=== PATIENT | male | born 1940 | race Caucasian/White ===

== ENCOUNTER 2017-10-09 02:14 | Emergency (ER) | payer OTHER ==
[~2017-10-09] VITALS: Ht 167.6 cm; Wt 88.0 kg
--- NOTE | ~2017-10-09 | EKG ---
[place] [address] ELECTROCARDIOGRAM REPORT Name: JOSEPHINE ARIAS Room: [facility]#: [id number] Admission: 10/09/17 Attend Phys: Discharge: Date of : 42 Report #: [id number] THIS REPORT FOR: //name// [facility] ED Test Date: 2017-10-09 Test Time: 02:18:42 Pat Name: JOSEPHINE ARIAS Department: Room: Gender: M Merchandise Director: SANTIAGO : 1940 Requested By: Zuly Jara Order Number: [id number] MD: Measurements Intervals [place] Rate: 82 P: 0 SC: 61 QRS: -79 QRSD: 134 T: 97 QT: 401 QTc: 469 Interpretive Statements Ventricular-paced complexes No further analysis attempted due to paced rhythm Baseline wander in lead(s) V2 Compared to ECG 07/25/2017 17:30:22 No significant changes [email or web address] By: 0218 0218 Epiphany EpiphanyMD /EPI
[~2017-10-09 02:14] MED LIST: ADULT LOW DOSE81 MG PO; ALDACTAZIDE 251 EAC1 PO; ALDACTONE25 MG PO; ALLOPURINOL; ALLOPURINOL 30300 M1 OR; ALLOPURINOL 30300 M1 PO; ALPRAZOLAM1 M1 PO; ASA81BEC PO; ASPIRIN EC81 M1 PO; ASPIRIN325; AZITHROMYCIN 2250 MG PO; CARVEDILOL12.5 MG OR; CARVEDILOL12.5 MG PO; CARVEDILOL25 MG PO; CARVEDILOL6.25 MG PO; CELEXA 20 MG TA20 MG PO; CLEOCIN HCL300 MG PO; CLOPIDOGREL; COLCHICINE PO; COREG6.25 MG PO; COUMADIN 2.5MG2.5 M1 PO; COUMADIN 5 MG TA5 M1; COUMADIN 5 MG TA5 M1 OR; COUMADIN 5 MG TA5 M1 PO; DESYREL50 MG PO; DILTIAZEM 24HR180 MG PO; DILTIAZEM ER120 M1 PO; EFFEXOR XR37.5 MG PO; ENTRESTO 24 MG1 EACH PO; EPLERENONE25 MG PO; FELDENE20 MG OR; FLAGYL500 MG PO; FLOMAX0.4 MG PO; HYDRALAZINE 2525 MG GT; HYDROCODON-ACE1 EAC8 PO; HYDROCODONE-AP1 EA11 PO; HYDROCODONE-AP1 EA12 PO; HYDROCODONE-APA1 TA1 PO; HYDROXYCHLOROQ200 M1 PO; IMDUR120 MG PO; JANTOVEN5 MG PO; KEFLEX500 MG PO; KLOR-CON 1010 MEQ PO; LANOXIN 0.250.25 M1 PO; LASIX 40 MG TAB40 M1 PO; LASIX 40 MG TAB40 M2 PO; LASIX 40 MG TAB40 MG GT; LASIX 80 MG TAB80 MG PO; LEVAQUIN 500 M500 M2 PO; LISINOPRIL20 MG PO; LISINOPRIL5 MG PO; LIVALO2 MG PO; LOSARTAN POTAS100 MG PO; MAGNESIUM OXID500 MG PO; MAGNESIUM250 M1 PO; METHOCARBAM PO; METOCLOPRAMIDE10 MG PO; MOBIC15 MG; MOBIC15 MG PO; MUCINEX600 MG PO; NITROGLYCERIN0.4 MG SL; NORCO 7.5-3251 EACH PO; NYSTATIN 1100000 U/M PO; OMEPRAZOLE 20 M20 M1 PO; OMEPRAZOLE40 MG PO; PACERONE 200 M200 M1 NG; PACERONE 200 M200 M1 PO; PERCOCET PO; PLAVIX 75 MG TA75 MG OR; PLAVIX 75 MG TA75 MG PO; POTASSIUM CHLO20 ME1 PO; PREDNISONE 10 M10 MG PO; PREDNISONE 5 MG5 M1 PO; PROBIOTIC ACID1 EACH PO; PROBIOTIC1 EAC1 PO; PROPRANOLOL 1010 M1 PO; PROPRANOLOL 1010 MG PO; RANEXA1000 MG PO; REGLAN 10 MG TA10 M1 PO; REGLAN 10 MG TA10 MG PO; ROCEPHIN 11 GM/100 M IV; TESSALON200 MG PO; TOPROL XL25 MG PO; TRAMADOL PO; TRAZODONE HCL100 MG PO; ULTRAM 50MG TAB50 MG PO; VANCOCIN 125 M125 M1 PO; VANCOMYCIN PO; VENLAFAXIN37.5 MG/1 PO; VENLAFAXINE H37.5 M2 PO; XANAX 0.5 MG0.5 M1 PO; XANAX1 MG PO; ZEGERID OTC 201 EACH PO; ZESTRIL20 MG PO; ZESTRIL30 MG PO; ZOFRAN4 MG PO; [UNRECOGNIZED DRUG - OTHER]
[2017-10-09 02:29] LABS: ABSOLUTE EOSINOPHILS 0.1 thou/uL (0.0-0.7); ABSOLUTE LYMPHOCYTES 1.7 thou/uL (0.8-5.3); ABSOLUTE NEUTROPHILS 4.5 thou/uL (1.6-8.1); BASOPHILS 0.6 %; EOSINOPHILS 1.1 %; HEMATOCRIT 36.9 % (42.0-52.0); HEMOGLOBIN 12.1 gm/dL (14.0-18.0); MCH 28.7 pg (26.0-34.0); MCHC 32.7 g/dL (28.0-37.0); MCV 87.6 fL (80.0-100.0); MONOCYTES 13.8 %; MPV 8.1 fl. (7.2-11.1); NUCLEATED RBCS 0 /100WBC; PLATELET COUNT* 183 thou/uL (150-400); POLYS 61.5 %; RBC 4.21 mil/uL (4.50-6.00); RDW-CV 23.6 % (10.5-14.5); WBC 7.4 thou/uL (4.0-11.0)
[2017-10-09 02:41] LABS: INR 2.3; PROTIME 22.3 Seconds (9.20-11.50)
[2017-10-09 02:49] LABS: CREATININE 2.4 mg/dL (0.6-1.3)
[2017-10-09 02:50] LABS: ALBUMIN 3.9 g/dL (3.4-5.0); CALCIUM 8.8 mg/dL (8.5-10.1); TOTAL BILIRUBIN 0.8 mg/dL (<0.1-1.0); TOTAL PROTEIN 7.2 g/dL (6.4-8.2); TROPONIN-I LEVEL 0.15 ng/mL (<0.06)
[2017-10-09 05:36] VITALS: BP 111/62
[2017-10-09 06:10] LABS: ANISOCYTOSIS 1+; OVALOCYTES Occasional; POIKILOCYTOSIS 1+; SCHISTOCYTES Occasional
[2017-10-09 06:11] LABS: PLATELET ESTIMATE ADEQUATE
== END 2017-10-09 05:36 | disposition home or self-care (01) ==
LOC: M.ERS 02:14
PROVIDERS: Emergency Medicine
DX: R07.89 Other chest pain (principal); I11.0 Hypertensive heart disease with heart failure; I50.9 Heart failure, unspecified; Z95.0 Presence of cardiac pacemaker; Z88.2 Allergy status to sulfonamides; Z88.8 Allergy status to other drugs, medicaments and biological substances; W00.2XXA Other fall from one level to another due to ice and snow, initial encounter; Y93.89 Activity, other specified; Y92.89 Other specified places as the place of occurrence of the external cause; Y99.8 Other external cause status

== ENCOUNTER 2017-10-11 15:21 | Inpatient (IN) | payer OTHER, SELFPAY ==
[~2017-10-11] VITALS: Ht 20.1 cm; Wt 90.8 kg
[2017-10-11 15:24] VITALS: BP 148/126
[2017-10-11 15:53] LABS: ABSOLUTE LYMPHOCYTES 0.8 thou/uL (0.8-5.3); ABSOLUTE MONOCYTES 0.8 thou/uL (0.0-1.2); ABSOLUTE NEUTROPHILS 4.8 thou/uL (1.6-8.1); BASOPHILS 0.2 %; CALCIUM 8.8 mg/dL (8.5-10.1); CREATININE 2.5 mg/dL (0.6-1.3); EOSINOPHILS 0.6 %; HEMATOCRIT 33.7 % (42.0-52.0); HEMOGLOBIN 11.2 gm/dL (14.0-18.0); LYMPHOCYTES 12.2 %; MCH 29.1 pg (26.0-34.0); MCHC 33.3 g/dL (28.0-37.0); MCV 87.5 fL (80.0-100.0); MONOCYTES 12.9 %; MPV 7.9 fl. (7.2-11.1); NUCLEATED RBCS 0 /100WBC; PLATELET COUNT* 164 thou/uL (150-400); POLYS 74.1 %; POTASSIUM 5.1 mmol/L (3.5-5.1); RBC 3.85 mil/uL (4.50-6.00); RDW-CV 23.1 % (10.5-14.5); WBC 6.4 thou/uL (4.0-11.0)
[2017-10-11 15:54] LABS: APTT 44.6 Seconds (25.0-31.3); INR 1.9; PROTIME 18.7 Seconds (9.20-11.50)
[2017-10-11 16:04] LABS: ALBUMIN 3.5 g/dL (3.4-5.0); TOTAL BILIRUBIN 1.1 mg/dL (<0.1-1.0); TOTAL PROTEIN 6.8 g/dL (6.4-8.2); TROPONIN-I LEVEL 0.14 ng/mL (<0.06)
[2017-10-11 16:12] LABS: URINE BILIRUBIN NEGATIVE (Negative); URINE BLOOD NEGATIVE (Negative); URINE CLARITY CLEAR; URINE COLOR YELLOW; URINE GLUCOSE-RANDOM NEGATIVE (Negative); URINE KETONES NEGATIVE (Negative); URINE LEUKOCYTES-REFLEX NEGATIVE (Negative); URINE NITRITE-REFLEX NEGATIVE (Negative); URINE PROTEIN NEGATIVE (Negative); URINE SPECIFIC GRAVITY <= 1.005 (1.005-1.030); URINE UROBILINOGEN 0.2 E.U./dl (0.2-1.0)
[2017-10-11 16:30] LABS: ANISOCYTOSIS 2+; OVALOCYTES 1+; PLATELET ESTIMATE ADEQUATE
[2017-10-11 16:32] LABS: SCHISTOCYTES Occasional
[2017-10-11 18:50] LABS: BE -0.5 mmol/L (-2 to +3); HCO3 23.5 mmol/L (22.0-26.0); PCO2 36.2 mmHg (35.0-45.0); PO2 90.7 mmHg (75.0-100.0)
[2017-10-11 19:51] VITALS: BP 118/68
[2017-10-11 21:00] VITALS: BP 117/53
[2017-10-12] VITALS (10 sets, daily range): BP systolic 83–119; BP diastolic 44–74
[2017-10-12 04:41] LABS: HEMATOCRIT 31.8 % (42.0-52.0); HEMOGLOBIN 10.4 gm/dL (14.0-18.0); MCH 28.8 pg (26.0-34.0); MCHC 32.8 g/dL (28.0-37.0); MCV 87.9 fL (80.0-100.0); MPV 7.9 fl. (7.2-11.1); RBC 3.62 mil/uL (4.50-6.00); RDW-CV 22.5 % (10.5-14.5); WBC 6.7 thou/uL (4.0-11.0)
[2017-10-12 05:02] LABS: CALCIUM 8.6 mg/dL (8.5-10.1); MAGNESIUM 2.3 mg/dL (1.8-2.4)
[2017-10-12 05:15] LABS: POTASSIUM 4.1 mmol/L (3.5-5.1)
--- NOTE | 2017-10-12 17:01 | EKG ---
[place] [address] ELECTROCARDIOGRAM REPORT Name: JOSEPHINE ARIAS Room: [address] IN .R.#: [id number] Admission: 10/11/17 Attend Phys: Kadeem Fuentes MD Discharge: Date of : 42 Report #: [id number] THIS REPORT FOR: //name// [facility] ED Test Date: 2017-10-11 Test Time: 15:29:06 Pat Name: JOSEPHINE ARIAS Department: Room: [facility] Gender: Molding Machine Operator: Alejandra TRINIDAD : 1940 Requested By: Farhan Montemayor Order Number: [id number] MD: Tony Christensen Measurements Intervals [place] Rate: 77 P: 0 [place]: 132 QRS: 260 QRSD: 139 T: 61 QT: 420 QTc: 476 Interpretive Statements Ventricular-paced rhythm No further analysis attempted due to paced rhythm Compared to ECG 10/09/2017 02:18:42 No significant changes Electronically Signed On 10-12-2017 17:01:27 TRAVEL ATTENDANTS by Tony Christensen [email or web address] <ELECTRONICALLY SIGNED> By: Tony Christensen MD, [facility] 10/12/17 1701 1529 1529 Tony Christensen MD, [facility] /EPI
[2017-10-13] VITALS (8 sets, daily range): BP systolic 90–137; BP diastolic 47–81
[2017-10-13 04:47] LABS: INR 2.1; PROTIME 20.6 Seconds (9.20-11.50)
[2017-10-13 05:07] LABS: CALCIUM 8.6 mg/dL (8.5-10.1); CREATININE 1.7 mg/dL (0.6-1.3); MAGNESIUM 2.1 mg/dL (1.8-2.4); POTASSIUM 4.2 mmol/L (3.5-5.1)
--- NOTE | 2017-10-13 07:23 | CON ---
[address] [address] CONSULTATION Name: JOSEPHINE ARIAS Room: [address] IN .R.#: [id number] Admission: 10/11/17 Attend Phys: Kadeem Fuentes MD Discharge: Date of : 42 Report #: [id number] THIS REPORT FOR: //name// CC: Omar Fuentes DATE OF SERVICE: 10/12/2017 HISTORY OF PRESENT ILLNESS: This is a 77-year-old male patient who was evaluated by me for some confusion. He is not sure whether he was confused. He thinks he is better. He thinks he fell down because of mechanical difficulty. He believes he is better. He did not have any head trauma and these symptoms came spontaneously. REVIEW OF SYSTEMS: The record indicates that he had some atrial fibrillation. It looks like he also had valve replacement. He says he does not have any metal in the body, but record indicates that he has a pacemaker and defibrillator, so we will confirm the history from the family because he still looks confused. Record also indicates that he has some history of dementia. Review of systems is from the patient, but is not very accurate. I do not think his memory is still very good, but the record indicates that he has a fracture of transverse process and other fractures in the past. He had a fall. He had an elevated troponin and looks like he has a defibrillator and aortic valve replacement. This is all the history I can get from the record. I did try to get rest of the 14-point of system and he basically does not tell me anything different. He said he was driving. He does not believe there is any new eye, ENT, respiratory, GI, , musculoskeletal, constitutional, dermatological, hematological, psychiatric, throat, allergic or endocrine symptoms associated with present symptomatology. PAST MEDICAL HISTORY: What appeared to be some cognitive impairment in the baseline. FAMILY HISTORY: Negative for early age stroke. SOCIAL HISTORY: He indicates he does not drink any alcohol or smoke now. PHYSICAL EXAMINATION: Indicates that this patient is alert, responsive. He was able to tell me what month and what date it is, but it took him a long time, but his memory and fund of knowledge is diminished. His speech looks intact. His cranial nerve examination 2-12 looks mostly unremarkable. Strength, sensation, reflexes and tone is symmetrical. There is no cerebellar sign. There is no meningeal sign. There is no carotid bruit. He is a reasonably well-developed individual who does not have any dysmorphic features of eyes, ears and face. His vision and hearing looks adequate. He has a history of atrial fibrillation. His pulse is difficult to feel, but I think it is there. No edema[place] [address] CONSULTATION Name: JOSEPHINE ARIAS Room: [address] IN [facility]#: [id number] Admission: 10/11/17 Attend Phys: Kadeem Fuentes MD Discharge: Date of : 41 Report #: [id number] jaundice. No thyroid mass. He had no respiratory difficulty or rhonchi. Blood pressure is 106/56, respirations 16, pulse is 59, temperature is 97.6. A CT scan of the head was mostly unremarkable. IMPRESSION: This patient presents with episode of confusion. I think it was related to his medication. He has taken psychotropic medication, but he had stopped it suddenly. He is becoming better. I think the best is to observe him to see if he continued to become better. It will be desirable to start this patient on PT, OT and see how he does with it. RECOMMENDATIONS: 1. EEG. 2. TSH and vitamin B12. 3. PT, OT. 4. See how he does with the PT, OT and then reevaluate the situation. <ELECTRONICALLY SIGNED> By: Kodi Hoskins MD 10/13/17 0723 1309 39Kodi Hoskins MD /nt
[2017-10-13] MEDS ORDERED: COUMADIN 5 MG TA5 M1 PO (15:51)
[2017-10-13] MEDS ORDERED: FLORASTOR250 MG PO (15:53)
[2017-10-14] VITALS: BP 100/62
[2017-10-14 04:03] VITALS: BP 140/80
[2017-10-14 05:08] LABS: ABSOLUTE LYMPHOCYTES 1.2 thou/uL (0.8-5.3); ABSOLUTE MONOCYTES 0.8 thou/uL (0.0-1.2); HEMOGLOBIN 10.8 gm/dL (14.0-18.0); MPV 8.4 fl. (7.2-11.1); PLATELET COUNT* 180 thou/uL (150-400); RDW-CV 22.3 % (10.5-14.5)
[2017-10-14 05:23] LABS: INR 2.2; PROTIME 21.4 Seconds (9.20-11.50)
[2017-10-14 05:30] LABS: ABSOLUTE EOSINOPHILS 0.1 thou/uL (0.0-0.7); ABSOLUTE NEUTROPHILS 4.8 thou/uL (1.6-8.1); BASOPHILS 0.3 %; EOSINOPHILS 0.8 %; HEMATOCRIT 31.8 % (42.0-52.0); LYMPHOCYTES 17.3 %; MCH 29.6 pg (26.0-34.0); MCHC 33.9 g/dL (28.0-37.0); MCV 87.3 fL (80.0-100.0); NUCLEATED RBCS 0 /100WBC; POLYS 69.6 %; RBC 3.65 mil/uL (4.50-6.00); WBC 6.9 thou/uL (4.0-11.0)
[2017-10-14 05:44] LABS: CALCIUM 8.7 mg/dL (8.5-10.1); CREATININE 1.6 mg/dL (0.6-1.3); POTASSIUM 4.4 mmol/L (3.5-5.1)
[2017-10-14 06:39] LABS: PLATELET ESTIMATE ADEQUATE
[2017-10-14 06:40] LABS: ANISOCYTOSIS 1+; HYPOCHROMASIA 1+; OVALOCYTES Occasional; POIKILOCYTOSIS 1+
[2017-10-14 08:00] VITALS: BP 137/88
[2017-10-14 12:00] VITALS: BP 130/64
[2017-10-14 16:00] VITALS: BP 120/62
[2017-10-14 20:00] VITALS: BP 142/78
[2017-10-15] VITALS: BP 125/78
[2017-10-15 11:37] VITALS: BP 105/56
[2017-10-15 12:31] LABS: ABSOLUTE EOSINOPHILS 0.1 thou/uL (0.0-0.7); ABSOLUTE LYMPHOCYTES 0.8 thou/uL (0.8-5.3); ABSOLUTE MONOCYTES 0.9 thou/uL (0.0-1.2); ABSOLUTE NEUTROPHILS 5.9 thou/uL (1.6-8.1); BASOPHILS 0.2 %; EOSINOPHILS 0.7 %; HEMATOCRIT 33.6 % (42.0-52.0); HEMOGLOBIN 11.2 gm/dL (14.0-18.0); LYMPHOCYTES 10.3 %; MCH 29.4 pg (26.0-34.0); MCHC 33.4 g/dL (28.0-37.0); MONOCYTES 11.6 %; MPV 7.7 fl. (7.2-11.1); NUCLEATED RBCS 0 /100WBC; PLATELET COUNT* 193 thou/uL (150-400); POLYS 77.2 %; RBC 3.82 mil/uL (4.50-6.00); RDW-CV 21.6 % (10.5-14.5); WBC 7.6 thou/uL (4.0-11.0)
[2017-10-15 12:36] LABS: CALCIUM 8.8 mg/dL (8.5-10.1); CREATININE 1.5 mg/dL (0.6-1.3); POTASSIUM 3.3 mmol/L (3.5-5.1)
[2017-10-15 12:38] LABS: INR 2.8; PROTIME 26.8 Seconds (9.20-11.50)
[2017-10-15 12:49] LABS: BURR CELLS Occasional; HYPOCHROMASIA 2+; PLATELET ESTIMATE ADEQUATE
[2017-10-15 15:30] VITALS: BP 91/49
[2017-10-15 20:00] VITALS: BP 118/68
[2017-10-16 00:02] VITALS: BP 129/73
[2017-10-16 04:00] VITALS: BP 128/74
[2017-10-16 05:32] LABS: INR 3.6
[2017-10-16 08:12] VITALS: BP 131/78
[2017-10-16 08:51] VITALS: BP 131/78
[2017-10-16 10:12] LABS: CALCIUM 8.7 mg/dL (8.5-10.1); CREATININE 1.5 mg/dL (0.6-1.3); POTASSIUM 3.8 mmol/L (3.5-5.1)
[2017-10-16] MEDS ORDERED: THIAMINE HCL100 MG PO (13:46)
--- NOTE | 2017-10-24 15:56 | EEG ---
[address] [address] EEG STUDY REPORT Name: ARIASJOSEPHINE L Room: [address]#: [id number] Admission: 10/11/17 Attend Phys: Kadeem Fuentes MD Discharge: 10/16/17 Date of : 41 Report #: [id number] THIS REPORT FOR: //name// CC: Omar Fuentes DATE OF SERVICE: 10/14/2017 This patient is being evaluated for altered mental status. EEG was done by placing the electrodes by standard 10/20 system of electrode placement. Both referential and sequential montages were used for recording. Background activity in this patient's EEG is about 8 Hz and 30-40 microvolt. It is a symmetrical activity. The patient went to sleep that is associated with bilateral slowing and vertex sharp waves. Photic stimulation is unremarkable. Throughout the record, no active epileptiform activity was noted. IMPRESSION: This patient's EEG is intermixed with theta range slowing on both sides. That is a nonspecific abnormality, which can occur with encephalopathy, dementia, effect of psychotropic medication, etc. Clinical correlation is recommended. Thank you very much for this referral. <ELECTRONICALLY SIGNED> By: Kodi Hoskins MD 10/24/17 1556 1412 1417Kodi Hoskins MD /nt
== END 2017-10-16 15:41 | disposition home health service (06) | DRG 91 ==
LOC: M.ERS 15:21 → M.TBA-ER 17:35 → M.2W 17:35
PROVIDERS: Family Medicine; Internal Medicine; ADMIT Internal Medicine
PROC: 4A00X4Z Measurement of Central Nervous Electrical Activity, External Approach (ICD-10-PCS; principal; 2017-10-15)
DX: G92 Toxic encephalopathy (principal); N17.0 Acute kidney failure with tubular necrosis; I50.20 Unspecified systolic (congestive) heart failure; I13.0 Hypertensive heart and chronic kidney disease with heart failure and stage 1 through stage 4 chronic kidney disease, or unspecified chronic kidney disease; I48.91 Unspecified atrial fibrillation; Z66 Do not resuscitate; N18.3 Chronic kidney disease, stage 3 (moderate); F41.9 Anxiety disorder, unspecified; I25.10 Atherosclerotic heart disease of native coronary artery without angina pectoris; S20.211A Contusion of right front wall of thorax, initial encounter; X58.XXXA Exposure to other specified factors, initial encounter; I27.20 Pulmonary hypertension, unspecified; F32.9 Major depressive disorder, single episode, unspecified; T43.215A Adverse effect of selective serotonin and norepinephrine reuptake inhibitors, initial encounter; Z96.652 Presence of left artificial knee joint; Z95.1 Presence of aortocoronary bypass graft; Z95.5 Presence of coronary angioplasty implant and graft; Z87.891 Personal history of nicotine dependence; Y93.89 Activity, other specified; Y92.89 Other specified places as the place of occurrence of the external cause; Y99.8 Other external cause status; Z95.810 Presence of automatic (implantable) cardiac defibrillator; Z79.01 Long term (current) use of anticoagulants; Z79.82 Long term (current) use of aspirin; Z79.899 Other long term (current) drug therapy; Z88.2 Allergy status to sulfonamides; Z88.8 Allergy status to other drugs, medicaments and biological substances; Z88.1 Allergy status to other antibiotic agents; Z82.49 Family history of ischemic heart disease and other diseases of the circulatory system

== ENCOUNTER → 2018-01-13 | Outpatient (CLI) | payer OTHER, SELFPAY ==
[~2018-01-13] MED LIST changes: +FLORASTOR250 MG PO; +THIAMINE HCL100 MG PO
[2018-01-13 13:36] LABS: CALCIUM 8.9 mg/dL (8.5-10.1); CREATININE 1.6 mg/dL (0.6-1.3); POTASSIUM 3.3 mmol/L (3.5-5.1)
== END ==
LOC: M.LAB 13:04
PROVIDERS: Nurse Practitioner
DX: I51.9 Heart disease, unspecified (principal)

== ENCOUNTER 2018-08-24 16:14 | Inpatient (IN) | payer OTHER ==
[~2018-08-24] VITALS: Ht 167.6 cm; Wt 88.5 kg
[~2018-08-24 16:14] MED LIST changes: -THIAMINE HCL100 MG PO; +VITAMIN B-1100 M1 PO
[2018-08-24 16:32] VITALS: BP 100/62
[2018-08-24] MEDS ORDERED: PROTONIX40 M1 PO (16:41)
[2018-08-24] MEDS ORDERED: DIGOXIN250 MCG PO (16:42)
[2018-08-24] MEDS ORDERED: KLONOPIN1 MG PO (16:44)
--- NOTE | 2018-08-24 16:50 | NUR ---
PATIENT PRESENTS WITH COMPLAINS OF HYPOTENSION REPORTED AT HOME AND ALSO VERTIGO TYPE SYMPTOMS PATIENT IS ALERT AND AMBULATORY DENIES N/V DENIES CHEST PAIN DENIES DYPSNEA PATIENT IS ALERT AND AGE APPROPRIATE SKIN WDP NO SIGNS OF DISTRESS
[2018-08-24 18:13] LABS: URINE BILIRUBIN NEGATIVE (Negative); URINE BLOOD NEGATIVE (Negative); URINE CLARITY CLEAR; URINE COLOR YELLOW; URINE GLUCOSE-RANDOM NEGATIVE (Negative); URINE KETONES NEGATIVE (Negative); URINE LEUKOCYTES-REFLEX NEGATIVE (Negative); URINE NITRITE-REFLEX NEGATIVE (Negative); URINE PROTEIN NEGATIVE (Negative); URINE UROBILINOGEN 0.2 E.U./dl (0.2-1.0)
[2018-08-24 18:20] LABS: HEMATOCRIT 30.6 % (42.0-52.0); HEMOGLOBIN 10.4 gm/dL (14.0-18.0); MCH 32.4 pg (26.0-34.0); MCV 95.3 fL (80.0-100.0); MPV 7.5 fl. (7.2-11.1); NUCLEATED RBCS 0 /100WBC; PLATELET COUNT* 168 thou/uL (150-400); RBC 3.22 mil/uL (4.50-6.00); RDW-CV 16.6 % (10.5-14.5); WBC 6.9 thou/uL (4.0-11.0)
[2018-08-24 18:29] LABS: CALCIUM 8.7 mg/dL (8.5-10.1); CREATININE 2.7 mg/dL (0.6-1.3); POTASSIUM 3.6 mmol/L (3.5-5.1)
[2018-08-24 18:36] LABS: ALBUMIN 3.3 g/dL (3.4-5.0); TOTAL BILIRUBIN 0.9 mg/dL (<0.1-1.0); TOTAL PROTEIN 6.5 g/dL (6.4-8.2); TROPONIN-I LEVEL 0.23 ng/mL (<0.06)
--- NOTE | 2018-08-24 18:50 | NUR ---
DR WHYTE TALKING WITH PATIENT REGARDING LAB FINDINGS
[2018-08-24 18:57] LABS: ABSOLUTE BASOPHILS 0.1 thou/uL (0.0-0.2); ABSOLUTE LYMPHOCYTES 0.7 thou/uL (0.8-5.3); ABSOLUTE MONOCYTES 0.3 thou/uL (0.0-1.2); ABSOLUTE NEUTROPHILS 5.8 thou/uL (1.6-8.1); ANISOCYTOSIS 1+; OVALOCYTES 1+; PLATELET ESTIMATE ADEQUATE; POIKILOCYTOSIS 1+
[2018-08-24 19:20] LABS: APTT 43.4 Seconds (25.0-31.3); INR 2.4; PROTIME 24.1 Seconds (9.20-11.50)
[2018-08-24 21:35] VITALS: BP 105/50
--- NOTE | 2018-08-24 23:00 | NUR ---
RECEIVED REPORT FROM PAYROLL SERVICES ANALYST JU AT 2130. PT ARRIVED TO UNIT AT 2150 VIA CART. PT VOICED NO CONCERNS THIS SHIFT. NEGATIVE SEPSIS SCREEN THIS SHIFT. HOURLY ROUNDING COMPLETED. PT V PACED ON CERTIFICATION AND SELECTION SPECIALIST. CALL LIGHT WITHIN REACH.
[2018-08-25] VITALS (8 sets, daily range): BP systolic 117–151; BP diastolic 51–81
--- NOTE | 2018-08-25 06:41 | NUR ---
PT RESTED WELL THIS SHIFT. NO COMPLAINTS. NO PAIN, DENIES FEELING DIZZY THIS SHIFT. VSS. V PACED ON COUNTER INTELLIGENCE. HOURLY ROUNDING COMPLETED. FALL PRECAUTIONS IN PLACE. CALL LIGHT WITHIN REACH.
--- NOTE | 2018-08-25 11:09 | NUR ---
MET WITH PT TO DISCUSS HOME SITUATION/DC PLANNING. PT LIVES WITH . HE IS INDEPENDENT WITH ADLS. SUES WALKER PRN AND BIPAP THRU [facility]. HE HAS HAD HH WITH [facility] IN THE PAST. PT REPORTS HE'S FEELING IMPROVED TODAY. DENIES ANY DC NEEDS. PLANS TO RETURN HOME AT DC AND DENIES NEEDS
[2018-08-25 11:21] LABS: CALCIUM 9.3 mg/dL (8.5-10.1); CREATININE 2.5 mg/dL (0.6-1.3); POTASSIUM 3.7 mmol/L (3.5-5.1)
--- NOTE | 2018-08-25 12:24 | NUR ---
Nutrition: Consult received for "wt change." Pt stated he usually weighs ~200#. Kekanto confirms this. Current wt is 195#. No significant changes. Pt stated he is eating fine. There was a time, PRESCRIPTIONIST, his appetite was poor d/t pain from falling on ice twice. He denies any nutrition/appetite issues currently. H/o CAD, CABG. BG 100, alb 3.3. Rx noted. 2gm Na, NPO after MN. Low risk.
[2018-08-25 15:38] LABS: INR 2.2; PROTIME 22.5 Seconds (9.20-11.50)
--- NOTE | 2018-08-25 17:03 | 2DMMODE ---
[place] [address] 2 D/M-MODE ECHOCARDIOGRAM Name: JOSEPHINE ARIAS Room: [address] IN [facility]#: [id number] Admission: 08/25/18 Attend Phys: Allen Bonner Discharge: Date of : 42 Date of Service: 08/25/18 170 Report #: [id number] THIS REPORT FOR: //name// APPROVED REPORT Study performed: 08/25/2018 10:24:41 EXAM: Comprehensive 2D, Doppler, and color-flow Echocardiogram Patient Location: In-Patient Room #: 229 Status: routine BSA: 1.98 HR: 77 bpm BP: 136/81 mmHg Rhythm: NSR Other Information Study Quality: Good Indications Hypotension Cardiomyopathy 2D Dimensions IVSd: 11.35 (7-11mm) LVOT Diam: 21.36 (18-24mm) LVDd: 59.55 mm PWd: 10.35 (7-11mm) Ascending Ao: 39.99 (22-36mm) LVDs: 53.77 (25-40mm) Aortic Root: 31.43 mm Volumes Left Atrial Volume (Systole) LA ESV Index: 61.40 mL/m2 Aortic Valve AoV Peak Bryan.: 2.07 m/s AO Peak Gr.: 17.11 mmHg LVOT Max P.99 mmHg AO Mean Gr.: 8.77 mmHg LVOT Mean P.25 mmHg LVOT Max V: 0.86 m/s AO V2 VTI: 38.07 cm LVOT Mean V: 0.50 m/s ANCA (VTI): 1.52 cm2 LVOT V1 VTI: 16.19 cm Mitral Valve E/A Ratio: 2.30 MV Decel. Time: 203.05 [place] [address] 2 D/M-MODE ECHOCARDIOGRAM Name: JOSEPHINE ARIAS Room: [address] IN .#: [id number] Admission: 08/25/18 Attend Phys: Allen Bonner Discharge: Date of : 42 Date of Service: 08/25/18 1702 Report #: [id number] MV E Max Bryan.: 1.72 m/s MV PHT: 58.88 ms MVA (PHT): 3.74 cm2 TDI E/Lateral E': 19.11 E/Medial E': 24.57 Medial E' Bryan.: 0.07 m/s Lateral E' Bryan.: 0.09 m/s Pulmonary Valve PV Peak Bryan.: 0.88 m/s PV Peak Gr.: 3.12 mmHg Tricuspid Valve RAP Estimate: 5.00 mmHg TR Peak Gr.: 41.54 mmHg RVSP: 46.00 mmHg PA Pressure: 46.00 mmHg Left Ventricle Left ventricle is moderately dilated. There is global hypokinesis of the left ventricle. There is normal left ventricular wall thickness. Left ventricular systolic function is severely decreased. LVEF is 25-30%. Grade IV - fixed restrictive diastolic dysfunction. Right Ventricle The right ventricle is normal size. The right ventricular systolic function is normal. Pacemaker lead is present in the right ventricle. Atria Left atrium is moderately dilated. The right atrium size is normal. Aortic Valve Mild aortic valve sclerosis. No aortic regurgitation is present. No hemodynamically significant valvular aortic stenosis. Mitral Valve Moderate mitral annular calcification. There is a bioprosthetic mitral valve. Moderate mitral regurgitation. No evidence of mitral valve stenosis. Tricuspid Valve The tricuspid valve is normal in structure. Mild to moderate tricuspid regurgitation. Moderate pulmonary hypertension. Pulmonic Valve The pulmonary valve is normal in structure[place] [address] 2 D/M-MODE ECHOCARDIOGRAM Name: JOSEPHINE ARIAS Room: [address]#: [id number] Admission: 08/25/18 Attend Phys: Allen Bonner Discharge: Date of : 42 Date of Service: 08/25/18 1702 Report #: [id number] regurgitation. Great Vessels The aortic root is normal in size. IVC is dilated and collapses <50% with inspiration. Pericardium There is no pericardial effusion. <Conclusion> Left ventricle is moderately dilated. There is normal left ventricular wall thickness. Left ventricular systolic function is severely decreased. LVEF is 25-30%. The right ventricle is normal size. Left atrium is moderately dilated. Mild aortic valve sclerosis. No aortic regurgitation is present. No hemodynamically significant valvular aortic stenosis. Moderate mitral annular calcification. Moderate mitral regurgitation. No evidence of mitral valve stenosis. The tricuspid valve is normal in structure. Mild to moderate tricuspid regurgitation. Moderate pulmonary hypertension. IVC is dilated and collapses <50% with inspiration. There is no pericardial effusion. There is global hypokinesis of the left ventricle. Pacemaker lead is present in the right ventricle. There is a bioprosthetic mitral valve. <ELECTRONICALLY SIGNED> By: Tony Christensen MD, FACC 08/25/181701 01 01 Tony Christensen MD, FACC /INF
--- NOTE | 2018-08-25 18:45 | EKG ---
[place] [address] ELECTROCARDIOGRAM REPORT Name: JOSEPHINE ARIAS Room: [address] ADM IN .R.#: [id number] Admission: 08/25/18 Attend Phys: Malgorzata Fong Discharge: Date of : 41 Report #: [id number] THIS REPORT FOR: //name// [facility] ED Test Date: 2018-08-24 Test Time: 17:01:04 Pat Name: JOSEPHINE ARIAS Department: Room: [facility] Gender: M Stitcher Hand: TDOWNS : 1940 Requested By: Monica Hardin Order Number: [id number] MD: Wenceslao Membreno Measurements Intervals [place] Rate: 59 P: 0 [place]: 49 QRS: 244 QRSD: 176 T: 93 QT: 526 QTc: 522 Interpretive Statements Atrial-ventricular dual-paced rhythm No further analysis attempted due to paced rhythm Compared to ECG 10/11/2017 15:29:06 No significant changes Electronically Signed On 08-25-2018 18:44:54 EMISSIONS REPAIR TECHNICIAN by Wenceslao Membreno [email or web address] <ELECTRONICALLY SIGNED> By: Wenceslao Membreno MD, FACC 08/25/18 1844 1701 1701 Wenceslao Membreno MD, [facility] /EPI
--- NOTE | 2018-08-25 18:52 | NUR ---
PATIENT RESTING IN ROOM. UP AD KATHERIN. VITAL SIGNS STABEL AND PATIENT APPEARS TO BE TOLERATING BLOOD PRESSURE MEDICATIONS. HOURLY ROUNDING COMPETED FOR PATIENTSAFETY.
[2018-08-26] VITALS: BP 117/56
[2018-08-26 04:00] VITALS: BP 147/60
--- NOTE | 2018-08-26 04:03 | NUR ---
ASSUMED PT CARE AT 1915. PT V PACED ON SALES ENABLEMENT SPECIALIST. NURSING ASSESSMENT COMPLETED AT START OF SHIFT. PT VOICED NO CONCERNS. IVF INFUSING, HOURLY ROUNDING COMPLETED, VSS, CALL LIGHT WITHIN REACH. PT PROGRESSING TOWARDS GOALS.
[2018-08-26 05:13] LABS: INR 2.2; PROTIME 22.3 Seconds (9.20-11.50)
[2018-08-26 05:24] LABS: CALCIUM 8.8 mg/dL (8.5-10.1); CREATININE 1.8 mg/dL (0.6-1.3); POTASSIUM 3.2 mmol/L (3.5-5.1)
[2018-08-26 08:00] VITALS: BP 137/77
--- NOTE | 2018-08-26 11:06 | NUR ---
CONTINUE TO FOLLOW, PT DCING HOME. DISCUSSED HH AGAIN, HE WOULD LIKE TO HAVE A HH NURSE NOW. DISCUSSED OPTIONS AND CHOSE [facility] HE HAS USED THEM BEFORE. CALLED AND FAXED REFERRAL TO [facility].
[2018-08-26 11:42] VITALS: BP 118/62
[2018-08-26] MEDS ORDERED: ENTRESTO 24 MG1 EACH PO (11:47)
[2018-08-26 11:53] VITALS: BP 118/62
[2018-08-26 11:55] VITALS: BP 136/81
--- NOTE | 2018-08-26 13:58 | NUR ---
PT DISCHARGE INSTRUCTIONS REVIEWED WITH PT AND DAUGHTER, EVELYNE. QUESTIONS ANSWERED. DISCHARGE INSTRUCTIONS SENT WITH PT, BLOWER AND COMPRESSOR ASSEMBLER AND PIV DISCONTINUED EARLIER.
--- NOTE | 2018-08-27 15:28 | CON ---
[address] [address] CONSULTATION Name: JUANAJOSEPHINE Jeannine Room: [address] IN .R.#: [id number] Admission: 08/25/18 Attend Phys: Malgorzata Fong Discharge: 08/26/18 Date of : 41 Report #: [id number] THIS REPORT FOR: //name// CC: Wenceslao Bonner CONSULTING PHYSICIAN: Allen Bonner DO. REASON FOR CONSULTATION: Acute kidney injury. HISTORY OF PRESENT ILLNESS: This is a 78-year-old gentleman who does not have an outpatient director life insurance and does not recall any history of chronic kidney disease, who was admitted with hypotension. He had blood pressures down into the upper 60s and blood pressure medications were withheld. His blood pressure has subsequently improved. He is feeling much better now. He is undergoing an echocardiogram. He denies any regular NSAID use. No nausea, vomiting or diarrhea and he appears to be comfortable at present time. REVIEW OF SYSTEMS: Constitutional, psych, heme, eyes, ENT, respiratory, cardiac, GI, , endocrine, all negative except as documented above. PAST MEDICAL HISTORY: Ischemic cardiomyopathy, coronary artery disease with history of 5-vessel CABG. There is mention of a history of hypertension, history of a pacemaker defibrillator, history of AFib, history of mitral valve repair, history of aortic valve replacement, peripheral vascular disease with history of carotid stenosis. He appears to have chronic kidney disease stage 3, history of C. diff with fecal transplant, depression. SOCIAL HISTORY: Previous tobacco use. FAMILY HISTORY: Not pertinent in this 78-year-old gentleman. MEDICATIONS: Reviewed. PHYSICAL EXAMINATION: VITAL SIGNS: Blood pressure 136/81, pulse 73, respirations 16, temperature 36.7. GENERAL: No acute distress. EYES: Extraocular movements intact. EARS: Externally normal. CARDIOVASCULAR: Regular rate. LUNGS: Diminished breath sounds. ABDOMEN: Soft, positive bowel sounds, nontender. PSYCHIATRIC: Awake, alert. LABORATORY DATA: White cell count 6.9, hemoglobin 10.4, platelets 168[place] [address] CONSULTATION Name: JOSEPHINE ARIAS Room: [address]#: [id number] Admission: 08/25/18 Attend Phys: Malgorzata Fong Discharge: 08/26/18 Date of : 41 Report #: [id number], potassium 3.6, chloride 92, bicarbonate 36, BUN 47, creatinine 2.7, calcium 8.7, glucose was 100 and albumin was 3.3. These labs were done yesterday evening. ASSESSMENT AND PLAN: 1. Acute kidney injury with an admission creatinine of 2.7. On 01/13/2018, creatinine was 1.6. He was on Lasix. He was significantly hypotensive on admission and this likely contributed to his acute kidney injury. His CK was okay, his UA was okay. 2. History of hypertension, admitted with hypotension. 3. Chronic kidney disease stage 3, baseline creatinine probably about 1.5-1.9. 4. Coronary artery disease with history of 5-vessel coronary artery bypass graft and ischemic cardiomyopathy along atrial fibrillation with a history of mitral valve repair and aortic valve replacement. 5. History of carotid stenosis. PLAN: 1. Check the lab now with improved blood pressure and reduced blood pressure medications. His renal function may have improved. He does have some mild hyponatremia. We will again repeat labs. 2. Check renal ultrasound. 3. Check lab again in the a.m. 4. The patient will need outpatient renal followup once ready for discharge. Thank you for requesting my opinion in the care and management of this patient. <ELECTRONICALLY SIGNED> By: Alexander Amin MD 08/27/18 1528 1046 1112Akasia Amin MD /nt
== END 2018-08-26 15:24 | disposition home health service (06) | DRG 682 ==
LOC: M.ERS 16:14 → M.TBA-ER 19:04 → M.2W 19:04
PROVIDERS: Internal Medicine Nephrology; Personal Emergency Response Attendant; ADMIT Internal Medicine
DX: N17.0 Acute kidney failure with tubular necrosis (principal); I50.43 Acute on chronic combined systolic (congestive) and diastolic (congestive) heart failure; I13.0 Hypertensive heart and chronic kidney disease with heart failure and stage 1 through stage 4 chronic kidney disease, or unspecified chronic kidney disease; I95.2 Hypotension due to drugs; N18.4 Chronic kidney disease, stage 4 (severe); E86.0 Dehydration; I25.10 Atherosclerotic heart disease of native coronary artery without angina pectoris; Z96.652 Presence of left artificial knee joint; F32.9 Major depressive disorder, single episode, unspecified; F41.9 Anxiety disorder, unspecified; I27.20 Pulmonary hypertension, unspecified; I25.5 Ischemic cardiomyopathy; I73.9 Peripheral vascular disease, unspecified; I48.2 Chronic atrial fibrillation; E87.6 Hypokalemia; T50.905A Adverse effect of unspecified drugs, medicaments and biological substances, initial encounter; Z95.1 Presence of aortocoronary bypass graft; Z95.0 Presence of cardiac pacemaker; Z79.01 Long term (current) use of anticoagulants; Z95.2 Presence of prosthetic heart valve; Z88.2 Allergy status to sulfonamides; Z88.8 Allergy status to other drugs, medicaments and biological substances; Z87.891 Personal history of nicotine dependence; Z82.49 Family history of ischemic heart disease and other diseases of the circulatory system

== ENCOUNTER 2018-09-27 06:30 | Inpatient (IN) | payer OTHER ==
[~2018-09-27] VITALS: Ht 167.6 cm; Wt 93.1 kg
--- NOTE | ~2018-09-27 | CON ---
[address] [address] CONSULTATION Name: JOSEPHINE ARIAS Room: [address] IN .R.#: [id number] Admission: 09/27/18 Attend Phys: Kadeem Fuentes MD Discharge: Date of : 42 Report #: [id number] THIS REPORT FOR: //name// CC: Kadeem Bruno DATE OF SERVICE: 09/28/2018 HISTORY OF PRESENT ILLNESS: This is a pleasant 78-year-old male with past medical history significant for CHF, pulmonary hypertension, atrial fibrillation, aortic valve disease, CKD, who is presenting for evaluation of abdominal pain, bloating. The GI service has been consulted for evaluation of elevated liver enzymes. The patient reports generalized bloating and vague abdominal pain. He denies any specific association with food or bowel movements. He reports associated nausea and no vomiting. The patient denies any significant weight loss in the recent time. The patient denies any fevers, chills, episodes of jaundice in the past. PAST MEDICAL HISTORY: Significant for coronary artery disease, mitral valve repair, aortic valve repair, atrial fibrillation, CHF, pulmonary hypertension. PAST SURGICAL HISTORY: Significant for appendectomy, right knee surgery, cataract extraction. SOCIAL HISTORY: The patient quit smoking several years back. He reports intermittent alcohol use about 2-3 beers per week. Denies any recreational drug use. FAMILY HISTORY: Significant for coronary artery disease. REVIEW OF SYSTEMS: Comprehensive 10-point review of systems is negative except what is mentioned in the HPI. PHYSICAL EXAMINATION: VITAL SIGNS: Temperature 36.7, pulse rate 69, respirations 17, blood pressure 107/58. GENERAL: The patient is alert and oriented x 3. HEENT: Pupils are equal, round, reactive to light and accommodation. Scleral icterus is present. Mucous membranes are moist. There is no congestion. LUNGS: Clear to auscultation bilaterally. CARDIOVASCULAR: Irregularly irregular. ABDOMEN: Soft, distended. No Polanco sign present. Bowel sounds are present. EXTREMITIES: Warm, well perfused, 2+ pitting edema present bilaterally. The patient does appear to have mild asterixis. SKIN: [place] [address] CONSULTATION Name: ARIASJOSEPHINE L Room: [address] IN [facility]#: [id number] Admission: 09/27/18 Attend Phys: Kadeem Fuentes MD Discharge: Date of : 42 Report #: [id number] LABORATORY DATA: Hemoglobin 9.9, hematocrit 29.4, platelet count 192, WBC count 7.3. Sodium 139, potassium 3.2, chloride 99, bicarbonate 32, BUN 28, creatinine 1.9, total bilirubin 2.9, AST 85, ALT 162. Troponin elevated at 0.16. INR 2.3. Abdomen and pelvis CT demonstrates cholelithiasis and constipation. No intrahepatic biliary ductal dilation seen. HIDA scan this demonstrates slow uptake of isotope in slow excretion, no evidence of biliary obstruction. This may reflect primary parenchymal abnormality, prompt filling of gallbladder with simultaneous bile duct opacification. ASSESSMENT AND PLAN: Pleasant 78-year-old male with past medical history as elaborated above, presenting with abdominal distention and elevated liver enzymes. The patient's bilirubin, AST, ALT and alkaline phosphatase are elevated. I suspect this is related to passive congestion from pulmonary hypertension and congestive heart failure. HIDA scan indicates a poor parenchymal uptake with no evidence of biliary ductal obstruction. CT indicates no dilation of the intrahepatic bile ducts. 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 A transjugular liver biopsy with wedge pressure measurement will be necessary for definitive diagnosis. However, I will hold off on this for now unless the patient becomes more symptomatic or his liver enzymes continue to worsen. Continue to diurese him for now and thank you for this consult. By: 1610 [id number] Nieves MD /nt
[~2018-09-27 06:30] MED LIST changes: +DIGOXIN250 MCG PO; +KLONOPIN1 MG PO; +PROTONIX40 M1 PO
[2018-09-27 06:39] VITALS: BP 126/69
[2018-09-27] MEDS ORDERED: PACERONE 200 M200 M1 (06:47)
[2018-09-27] MEDS ORDERED: LASIX 80 MG TAB80 MG (06:47)
[2018-09-27] MEDS ORDERED: tumeric PO (06:49)
[2018-09-27 07:01] LABS: HEMATOCRIT 33.9 % (42.0-52.0); MCH 31.1 pg (26.0-34.0); MCHC 32.5 g/dL (28.0-37.0); MCV 95.7 fL (80.0-100.0); MPV 8.3 fl. (7.2-11.1); NUCLEATED RBCS 0 /100WBC; PLATELET COUNT* 260 thou/uL (150-400); RBC 3.54 mil/uL (4.50-6.00); RDW-CV 16.6 % (10.5-14.5); WBC 11.3 thou/uL (4.0-11.0)
[2018-09-27 07:07] LABS: CALCIUM 9.6 mg/dL (8.5-10.1); CREATININE 2.1 mg/dL (0.6-1.3)
[2018-09-27 07:11] LABS: PROTIME 30.2 Seconds (9.20-11.50)
[2018-09-27 07:18] LABS: ALBUMIN 3.7 g/dL (3.4-5.0); TOTAL BILIRUBIN 3.8 mg/dL (<0.1-1.0); TOTAL PROTEIN 7.3 g/dL (6.4-8.2); TROPONIN-I LEVEL 0.17 ng/mL (<0.06)
[2018-09-27 07:33] LABS: ABSOLUTE LYMPHOCYTES 0.8 thou/uL (0.8-5.3); ABSOLUTE MONOCYTES 0.8 thou/uL (0.0-1.2); ABSOLUTE NEUTROPHILS 9.7 thou/uL (1.6-8.1); PLATELET ESTIMATE ADEQUATE
[2018-09-27 08:11] LABS: AMYLASE 62 U/L (25-115); LIPASE 90 U/L (73-393)
--- NOTE | 2018-09-27 08:27 | NUR ---
PT INSTRUCTED ON VOIDING FOR URINE SAMPLE, BUT WAS UNABLE TO DO SO.
--- NOTE | 2018-09-27 10:34 | EKG ---
[place] [address] ELECTROCARDIOGRAM REPORT Name: JOSEPHINE ARIAS Room: [place] [address] ADM IN [facility]#: [id number] Admission: 09/27/18 Attend Phys: Kadeem Fuentes MD Discharge: Date of : 42 Report #: [id number] THIS REPORT FOR: //name// [facility] ED Test Date: 2018-09-27 Test Time: 06:58:33 Pat Name: JOSEPHINE ARIAS Department: Room: [facility] Gender: M Room Maid: CHAD : 1940 Requested By: Monica Hardin Order Number: [id number] MD: Neftali Gamboa Measurements Intervals [place] Rate: 82 P: 92 [place]: 178 QRS: 221 QRSD: 161 T: 58 QT: 453 QTc: 529 Interpretive Statements Ventricular-paced rhythm No further analysis attempted due to paced rhythm Compared to ECG 08/24/2018 17:01:04 no change Electronically Signed On 09-27-2018 10:34:21 GAS WELDING EQUIPMENT MECHANIC by Neftali Gamboa [email or web address] <ELECTRONICALLY SIGNED> By: Neftali Gamboa MD, [facility] 09/27/18 1034 0658 0658 Neftali Gamboa MD, [facility] /EPI
[2018-09-27 11:33] VITALS: BP 105/58
[2018-09-27 12:15] VITALS: BP 128/64
[2018-09-27 12:41] LABS: DIRECT BILIRUBIN 2.2 mg/dL (<0.1-0.3)
--- NOTE | 2018-09-27 15:28 | NUR ---
PATIENT IS ALERT TODAY SINCE COMING UP FROM THE ER. PLEASANT AND ALERT SOMEWHAT DISORIENTED WITH THE YEAR AND TIME. FAMILY AT BEDSIDE WITH PATIENT DURING ADMSSION. ROOM ORIENTATION AND ADMISSION ASSESSMENT DONE. CALL LIGHT IS IN REACH, WILL CONTINUE TO MONITOR.
--- NOTE | 2018-09-27 18:04 | NUR ---
PATIENT IS ALERT TODAY, NO COMPLAINTS OF ANY KIND SINCE COMING TO THE FLOOR. PATIENT HAS ERCP DONE AND WAITING FOR GI TO SEE, CARDIOOLGY CHANGED SOME MEDICATION ORDERS TODAY, MEDICATION HAD ALREADY BEEN GIVEN, PROVIDER SAID HOLD STARTING COUMADIN TOMOROW. CALL LIGHT IS IN REACH, WILL CONTINUE TO MONITOR.
[2018-09-27 20:00] VITALS: BP 113/66
[2018-09-28] VITALS: BP 117/58
[2018-09-28 04:00] VITALS: BP 134/69
[2018-09-28 04:45] LABS: HEMATOCRIT 29.4 % (42.0-52.0); HEMOGLOBIN 9.9 gm/dL (14.0-18.0); MCH 32.2 pg (26.0-34.0); MCHC 33.7 g/dL (28.0-37.0); MCV 95.5 fL (80.0-100.0); MPV 8.3 fl. (7.2-11.1); RBC 3.08 mil/uL (4.50-6.00); RDW-CV 16.6 % (10.5-14.5); WBC 7.3 thou/uL (4.0-11.0)
[2018-09-28 04:57] LABS: INR 2.3; PROTIME 23.4 Seconds (9.20-11.50)
[2018-09-28 05:03] LABS: CALCIUM 9.1 mg/dL (8.5-10.1); CREATININE 1.9 mg/dL (0.6-1.3); MAGNESIUM 2.2 mg/dL (1.8-2.4); POTASSIUM 3.2 mmol/L (3.5-5.1); TOTAL BILIRUBIN 2.9 mg/dL (<0.1-1.0); TROPONIN-I LEVEL 0.16 ng/mL (<0.06)
--- NOTE | 2018-09-28 05:25 | NUR ---
ASSUMED CARE OF PT AFTER REPORT AT 1930. PT A&OX4. FORGETFUL. VSS. PHYSICAL ASSESSMENT COMPLETED AND CHARTED. PT ON RA WITH 94% O2 SAT. PT TRACING VPACED ON TELE. PT UP STANDBY WITH A WALKER TO THE RESTROOM. DENIES ANY PAIN OR SOA. REMINDED ON 2OOOMLS FLUID RESTRICTION. COOMUNICATES UNDERSTANDING. FALL PRECAUTIONS IN PLACE. CALL LIGHT WITHIN REACH.
[2018-09-28 09:15] VITALS: BP 100/48
--- NOTE | 2018-09-28 09:28 | CON ---
[address] [address] CONSULTATION Name: ARIASJOSEPHINE Jeannine Room: [address] IN M.R.#: [id number] Admission: 09/27/18 Attend Phys: Kadeem Fuentes MD Discharge: Date of : 42 Report #: [id number] THIS REPORT FOR: //name// CC: Kadeem Bruno MD DATE OF SERVICE: 09/27/2018 TYPE OF REPORT: Cardiology consultation. PRIMARY CARE PHYSICIAN: Erendira Bruno M.D. HISTORY OF PRESENT ILLNESS: The patient is a 78-year-old white male who I was asked to see in the hospital today after he complained of abdominal pain. The patient has an extensive and complicated past medical history. He apparently had previous 5-vessel coronary artery bypass surgery with aortic valve replacement, mitral valve repair and a maze procedure at [facility] by Dr. Monique years ago. He has a history of paroxysmal atrial fibrillation. This was apparently performed in 2010 using a bioprosthesis in the aortic position. He underwent implantation of a biventricular defibrillator by Dr. Lan at [facility] in 2017. Recently, he has been followed by my partner, Dr. Membreno. He actually just saw my nurse practitioner a week ago. He was admitted to [facility] in August with hypertension, lightheadedness. He was felt to be dehydrated. His dose of carvedilol was decreased as well as a dose of Entresto. His Lasix was held because of renal insufficiency. He saw his pool manager 2 weeks ago and he started back on Lasix. When he saw my nurse practitioner, he was doing well. The patient apparently came to the emergency room this morning complaining of edema, loose stool, fatigued. He does have some abdominal pain and bloating. He apparently was confused. He is admitted for further evaluation and treatment. He denies any chest pain, increased palpitations or recent discharges of defibrillator. He has been short of breath and has noticed some edema. PAST MEDICAL HISTORY: Otherwise significant for appendectomy, right knee surgery, cataract extraction and hypertension. MEDICATIONS: Consist of allopurinol, Xanax, amiodarone for intermittent atrial fibrillation, carvedilol, Lasix, hydrocodone as needed, omeprazole, potassium, Entresto, Flomax, Effexor and warfarin. ALLERGIES: He has intolerance to spironolactone. FAMILY HISTORY: [place] [address] CONSULTATION Name: JOSEPHINE ARIAS Room: [address]#: [id number] Admission: 09/27/18 Attend Phys: Kadeem Fuentes MD Discharge: Date of : 41 Report #: [id number] SOCIAL HISTORY: He is . He and his live in [place], [place]. Quit smoking years ago. No alcohol abuse. REVIEW OF SYSTEMS: He has had no history of stroke. He does apparently use BiPAP at home. No history of peptic ulcer disease or liver disease. He has chronic kidney disease. No cancer. No psychiatric illness. PHYSICAL EXAMINATION: GENERAL: Revealed an elderly male sitting in chair. He appeared in no acute distress. VITAL SIGNS: He had a blood pressure 120/70, pulse is 80s and afebrile. HEENT: He is anicteric. Conjunctivae pink. Mucous membranes appear dry. NECK: Veins do not appear distended. No carotid bruits. CHEST: Clear to auscultation. CARDIOVASCULAR: Regular rate and rhythm. ABDOMEN: Soft. EXTREMITIES: Had trace edema. SKIN: Cool and dry. NEUROLOGICAL: Very slow moving. RADIOLOGICAL DATA: His ECG showed a ventricular paced rhythm. His underlying rhythm suggested atrial fibrillation. His workup last night included a chest x-ray that showed cardiomegaly, clear lung waldrop. CT scan of the abdomen showed gallstones. LABORATORY DATA: His lab work: Sodium is 135, potassium 4.0, BUN 27, creatinine is 2.1 which is down from 2.5 on August 25. His total bilirubin is 4.0. SGOT 159, SGPT 223 and alkaline phosphate 506, which is elevated from last month. His troponin was 0.17. It was actually 0.23 a month ago. BNP 6372. His TSH last month was 0.3. His INR was 3. White blood cell count 11.3 and hemoglobin 11. IMPRESSION AND RECOMMENDATIONS: 1. Elevated liver function studies. 2. Gallstones. 3. Cardiomyopathy. The patient has been on Entresto and carvedilol. 4. Coronary artery disease. No recent angina. Since the patient is on warfarin, I would not recommend aspirin. 5. Previous aortic valve replacement using tissue valve. The patient's last echocardiogram a month ago showed an ejection fraction of only 25%, left atrial enlargement, no significant aortic valve insufficiency, moderate mitral regurgitation following mitral valve repair. 6. History of atrial fibrillation. His ECG today appears to show his underlying rhythm is atrial fibrillation. If he remains in atrial fibrillation, I would consider discontinuing his amiodarone. If the patient is anticoagulated, I would maintain an INR of 2-3. [address] [place] [address] CONSULTATION Name: JOSEPHINE ARIAS Room: [address] IN ..#: [id number] Admission: 09/27/18 Attend Phys: Kadeem Fuentes MD Discharge: Date of : 41 Report #: [id number] 7. Chronic kidney disease. 8. Use of bilevel positive airway pressure. <ELECTRONICALLY SIGNED> By: Neftali Gamboa MD, FACC 09/28/18 0928 1751 [id number] Gamboa MD, FACC /nt
[2018-09-28 12:00] VITALS: BP 107/58
[2018-09-28 16:00] VITALS: BP 134/89
[2018-09-28 16:11] LABS: HEPATITIS B SURFACE AG Negative (Negative)
--- NOTE | 2018-09-28 16:30 | NUR ---
REGIONAL TRAINER ATTEMPTED TO SPEAK TO THE PATIENT TO DISCUSS HIS HOME SITUAITON, DISCHARGE PLANNING, AND TO INFORM OF THE ROLE OF CM. PATIENT UNABLE TO APPROPRIATELY ANSWER QUESTIONS. D/C IRRIGATION INSTALLATION SPECIALIST SPOKE TO THE PATIENT'S SPOUSE AND SHE INFORMS THAT THE PATIENT RESIDES AT HOME WITH HER, IS NORMALLY ALERT AND ORIENTED, INDEPENDENT WITH ADL'S, AND ABLE TO DRIVE OCCATIONALLY. PATIENT USES A WALKER FOR MOBILITY, AND A BIPAP AT NIGHT. PATIENT CURRENTLY ON-SERVICE WITH [facility], AND THIS IS CONFIRMED WITH DAVID WITH [facility]. PATIENT'S SPOUSE INFORMS THAT THE PLAN FOR THE PATIENT TO RETURN HOME WITH HH AT D/C. CM WILL REMAIN AVAILABLE TO ASSIST AND FOLLOW NEEDED.
--- NOTE | 2018-09-28 18:42 | NUR ---
ASSUMED PT CARE AT 0730, FULL ASSESMENT DONE CHARTED. PT A/O X4, DENIES PAIN, IS CONFUSED AT TIMES, ANDREAFSKI, PT DOES NOT ALWAYS USE CALL LIGHT TO ASK FOR HELP UP TO THE BATHROOM, BED ALARM IS ON. BP SOFT, PT ASYMPTOMATIC, ALL OTHER VSS, VPACED ON THE MONITOR. PTS AND DTR AT BEDSIDE THIS AFTERNOON, UPDATED ON PLAN OF CARE. PT ASSISTED WITH TRAY SET UP WITH MEALS. ISOLATION MAITAINED. WILL CONTINUE TO MONITOR.
[2018-09-28 20:00] VITALS: BP 143/74
[2018-09-29] VITALS: BP 128/70
[2018-09-29 04:00] VITALS: BP 134/68
--- NOTE | 2018-09-29 04:44 | NUR ---
ASSUMED CARE OF PT AFTER REPORT AT 1930. PT A&OX4. FORGETFUL & CONFUSED AT TIMES. VSS. PHYSICAL ASSESSMENT COMPLETED AND CHARTED. PT ON RA WITH 97% O2 SAT. PT TRACING VPACED ON TELE. PT UP STANDBY TO RESTROOM. PT DENIES ANY PAIN OR DISCOMFORT. PT RESTED WELL ON BED. CALL LIGHT WITHIN REACH. BED IN LOW POSITION. BED ALARM ON.
[2018-09-29 05:09] LABS: HEMATOCRIT 29.4 % (42.0-52.0); HEMOGLOBIN 9.8 gm/dL (14.0-18.0); MCHC 33.5 g/dL (28.0-37.0); MCV 95.5 fL (80.0-100.0); MPV 8.6 fl. (7.2-11.1); RBC 3.08 mil/uL (4.50-6.00); RDW-CV 16.4 % (10.5-14.5); WBC 6.5 thou/uL (4.0-11.0)
[2018-09-29 05:24] LABS: PROTIME 20.6 Seconds (9.20-11.50)
[2018-09-29 05:30] LABS: ALBUMIN 2.9 g/dL (3.4-5.0); CREATININE 1.8 mg/dL (0.6-1.3); MAGNESIUM 2.1 mg/dL (1.8-2.4); POTASSIUM 3.2 mmol/L (3.5-5.1); TOTAL BILIRUBIN 2.1 mg/dL (<0.1-1.0); TROPONIN-I LEVEL 0.15 ng/mL (<0.06)
[2018-09-29 08:00] VITALS: BP 132/77
[2018-09-29 12:00] VITALS: BP 122/64
[2018-09-29 16:00] VITALS: BP 125/66
--- NOTE | 2018-09-29 18:58 | NUR ---
ASSUMED PT CARE AT 0730, FULL ASSESMENT DONE CHARTED. PT A/O X4, FORGETFUL AT TIMES, IS NOT CONFUSED PREVIOUS DAY. PT MOVED TO LARGER ROOM CLOSER TO NURSES STATION DUE TO HX FALLS AND NOT CALLING STAFF APPROPRIATLY. PT TO RECLINER TODAY, WALKED IN LACEY WITH PT. VSS, VPACED/AV PACED ON THE MONITOR. PT DOING BETTER TOWARD END OF SHIFT CALLING STAFF FOR NEEDS. GOOD APITITE, AT BEDSIDE THIS EVENING. WILL CONTINUE TO MONITOR
[2018-09-29 19:45] VITALS: BP 109/61
[2018-09-30] VITALS: BP 122/74
[2018-09-30 04:00] VITALS: BP 132/73
[2018-09-30 06:29] LABS: HEMATOCRIT 29.7 % (42.0-52.0); HEMOGLOBIN 9.9 gm/dL (14.0-18.0); MCH 31.7 pg (26.0-34.0); MCHC 33.4 g/dL (28.0-37.0); MCV 95.1 fL (80.0-100.0); MPV 8.5 fl. (7.2-11.1); RBC 3.12 mil/uL (4.50-6.00); RDW-CV 16.5 % (10.5-14.5); WBC 7.1 thou/uL (4.0-11.0)
[2018-09-30 06:41] LABS: INR 1.7; PROTIME 17.5 Seconds (9.20-11.50)
[2018-09-30 06:43] LABS: CALCIUM 8.9 mg/dL (8.5-10.1); CREATININE 1.6 mg/dL (0.6-1.3); MAGNESIUM 2.2 mg/dL (1.8-2.4); POTASSIUM 3.4 mmol/L (3.5-5.1)
--- NOTE | 2018-09-30 08:02 | NUR ---
RECEIVED REPORT AND ASSUMED CARE AT 1900. VSS. CARDIAC MONITORING IN PLACE. PT DENIES COMPLAINTS OF PAIN. ASSESSMENT COMPLETED CHARTED. PT UP SBA, ON RA. BED LOCKED IN LOWEST POSITION, CALL LIGHT WITHIN REACH, BED ALARM ON. HOURLY ROUNDING COMPLETED AND ALL NEEDS MET. NURSING WILL CONTINUE TO MONITOR
[2018-09-30 08:30] VITALS: BP 128/77
[2018-09-30] MEDS ORDERED: SPIRONOLACTONE25 MG PO (09:46)
[2018-09-30 09:47] VITALS: BP 128/77
[2018-09-30 10:09] LABS: ANA INTERPRETATION Negative (Negative)
--- NOTE | 2018-09-30 10:17 | NUR ---
Pt discharging to home today, faxed resumption orders to [facility]
== END 2018-09-30 15:05 | disposition home health service (06) | DRG 441 ==
LOC: M.ERS 06:30 → M.TBA-ER 09:42 → M.2W 09:42
PROVIDERS: Emergency Medicine; Personal Emergency Response Attendant; ADMIT Internal Medicine
DX: K75.9 Inflammatory liver disease, unspecified (principal); I50.23 Acute on chronic systolic (congestive) heart failure; N17.9 Acute kidney failure, unspecified; N18.4 Chronic kidney disease, stage 4 (severe); I42.9 Cardiomyopathy, unspecified; K80.10 Calculus of gallbladder with chronic cholecystitis without obstruction; K76.89 Other specified diseases of liver; K76.1 Chronic passive congestion of liver; I25.10 Atherosclerotic heart disease of native coronary artery without angina pectoris; I27.20 Pulmonary hypertension, unspecified; I48.91 Unspecified atrial fibrillation; F32.9 Major depressive disorder, single episode, unspecified; F41.9 Anxiety disorder, unspecified; Z96.652 Presence of left artificial knee joint; F41.1 Generalized anxiety disorder; D64.9 Anemia, unspecified; Z95.0 Presence of cardiac pacemaker; Z95.2 Presence of prosthetic heart valve; Z95.5 Presence of coronary angioplasty implant and graft; Z95.1 Presence of aortocoronary bypass graft; Z88.2 Allergy status to sulfonamides; Z88.8 Allergy status to other drugs, medicaments and biological substances; Z87.891 Personal history of nicotine dependence; Z79.01 Long term (current) use of anticoagulants

== ENCOUNTER → 2018-10-05 | Outpatient (CLI) | payer OTHER ==
[~2018-10-05] MED LIST changes: +LASIX 80 MG TAB80 MG; +PACERONE 200 M200 M1; +SPIRONOLACTONE25 MG PO; +tumeric PO
[2018-10-05 15:46] LABS: ALBUMIN 3.5 g/dL (3.4-5.0); CALCIUM 9.1 mg/dL (8.5-10.1); CREATININE 1.8 mg/dL (0.6-1.3); POTASSIUM 4.4 mmol/L (3.5-5.1); TOTAL BILIRUBIN 1.3 mg/dL (<0.1-1.0); TOTAL PROTEIN 6.9 g/dL (6.4-8.2)
== END ==
LOC: M.LAB 15:06
PROVIDERS: Registered Nurse
DX: I50.22 Chronic systolic (congestive) heart failure (principal)

== ENCOUNTER → 2018-11-30 | Outpatient (CLI) | payer OTHER, SELFPAY | LOC: M.ULTRA 12:27 | DX: I65.23 Occlusion and stenosis of bilateral carotid arteries (principal) ==

== ENCOUNTER 2018-12-25 18:00 | Inpatient (IN) | payer OTHER ==
[~2018-12-25] VITALS: Ht 172.7 cm; Wt 88.9 kg
--- NOTE | ~2018-12-25 | CON ---
[facility] [address] [place] [address] CONSULTATION Name: JUANAJOSEPHINE L Room: [address] IN .R.#: [id number] Admission: 12/25/18 Attend Phys: Katie Maxwell MD Discharge: Date of : 41 Report #: [id number] THIS REPORT FOR: //name// CC: Erendira Bruno Katie Maxwell DATE OF SERVICE: 12/26/2018 REQUESTING PHYSICIAN: Katie Maxwell M.D. PRIMARY TELEVISION ANTENNA INSTALLER: Wenceslao Membreno M.D. CHIEF COMPLAINT: ICD shock. HISTORY OF PRESENT ILLNESS: The patient is a 78-year-old man with an ischemic cardiomyopathy and severe LV dysfunction, was resting yesterday and he noticed a defibrillator shock. It woke him up. He came in to the Emergency Room, he was noted to have a V-paced rhythm and he has not had any more episodes. Telemetry has been unremarkable. He reports feeling fairly well. He has been a little bit more short of breath and he does have rales on initial presentation. He denies any defibrillator shocks previously. He has not been having more angina. He denies chest pressure or tightness. He had been compliant with his medications, but the patient is quite forgetful and most of the history was obtained from chart record. The patient's daughter is responsible for administering his medications via a pill dispenser bottle, but he has been emptying it appropriately. His electrolytes were unremarkable and at this point in time, he is not dyspneic. PAST MEDICAL HISTORY: He has the following medical history: He had a [employer] Bi-V ICD implanted in 2017. He has an ischemic cardiomyopathy, EF 25%. He has a remote history of bypass surgery. He has had a previous angiographic evaluation per Dr. Gamboa, which demonstrated patency of his MARIN to LAD as well as 2 saphenous vein grafts. He is treated with Entresto. He has hypertension and remote TIA. ALLERGIES: He apparently is intolerant to AMIODARONE because of liver toxicity, ALDACTONE, STATIN and SULFA. HOME MEDICATIONS: Include Entresto one-half tablet b.i.d., prednisone, Coreg 3.125 mg p.o. b.i.d., Xarelto 15 mg daily, [place] [address] CONSULTATION Name: JOSEPHINE ARIAS Room: [address]#: [id number] Admission: 12/25/18 Attend Phys: Katie Maxwell MD Discharge: Date of : 41 Report #: [id number] chloride. REVIEW OF SYSTEMS: GENERAL: No fever or chills. PULMONARY: Positive shortness of breath. No cough. CARDIOVASCULAR: No chest pain. Positive dyspnea with exertion. No weight gain. NEUROLOGICAL: Denies headaches or blurred vision. No seizures. HEMATOLOGIC: No anemia or bleeding. RENAL: Positive history of kidney disease. SKIN: No rashes. GENERAL: No fevers or chills. GASTROINTESTINAL: No nausea, vomiting, hematemesis or melena. PHYSICAL EXAMINATION: VITAL SIGNS: Blood pressure is 130/60, pulse 74 and respiratory rate 16. GENERAL: This is a thin adult male. He is a poor historian. HEENT: Unremarkable. There is no facial asymmetry. NECK: Supple. No jugular venous distention. CARDIOVASCULAR: Regular. There is a faint apical murmur. There is no S3. LUNGS: Bilateral rales. ABDOMEN: Soft and nontender. EXTREMITIES: There is a trace amount of edema. NEUROLOGICAL: There are no focal deficits. RADIOLOGICAL DATA: Electrocardiogram demonstrates a V-paced rhythm. Chest x-ray reveals stable chest, no acute process. LABORATORY DATA: Hemoglobin is 9.5; white blood count 6.5 and platelet count is 189,000. Sodium is 143, potassium is 3.4, chloride is 105, CO2 is 29, BUN is 30 and creatinine is 1.5. Troponin-I is 0.22. AST is 20 and ALT is 29. T4 is 1.02. IMPRESSION AND PLAN: 1. Implantable cardioverter-defibrillator discharge. We will have device interrogated to see if this is his atrial or ventricular arrhythmia. On telemetry, there have not been any ventricular arrhythmias. I do not think this is angina mediated based on the patient's clinical presentation. He does have mild evidence of congestive heart failure exacerbation though. 2. Ntrmw-eb-omiyydq systolic dysfunction, congestive heart failure. We will diurese him while he is in the hospital. I would like to continue with Carlitos and Keith. 3. History of liver toxicity if this is indeed a ventricular event. I would like to see what other antiarrhythmic options there are. We will wait for his interrogation first. We will also review his old records to see what the degree of liver transaminase elevation was present on amiodarone as the drug may be [address] [place] [address] CONSULTATION Name: JOSEPHINE ARIAS Room: [address] IN [facility]#: [id number] Admission: 12/25/18 Attend Phys: Katie Maxwell MD Discharge: Date of : 41 Report #: [id number] beneficial with close monitoring. 4. Oral anticoagulation. I suspect he has atrial fibrillation. He will continue with this drug. By: 1110 0026Ahmet Lewis MD, FACC /nt
[~2018-12-25 18:00] MED LIST changes: +XARELTO15 MG PO
[2018-12-25 18:02] VITALS: BP 123/76
[2018-12-25 18:57] LABS: ABSOLUTE LYMPHOCYTES 0.7 thou/uL (0.8-5.3); ABSOLUTE MONOCYTES 0.6 thou/uL (0.0-1.2); ABSOLUTE NEUTROPHILS 6.7 thou/uL (1.6-8.1); BASOPHILS 0.1 %; HEMOGLOBIN 10.8 gm/dL (14.0-18.0); LYMPHOCYTES 8.2 %; MCH 28.1 pg (26.0-34.0); MCHC 32.7 g/dL (28.0-37.0); MCV 86.2 fL (80.0-100.0); MONOCYTES 7.7 %; MPV 7.4 fl. (7.2-11.1); NUCLEATED RBCS 0 /100WBC; PLATELET COUNT* 228 thou/uL (150-400); RBC 3.83 mil/uL (4.50-6.00); RDW-CV 17.3 % (10.5-14.5)
[2018-12-25 19:06] LABS: CREATININE 1.8 mg/dL (0.6-1.3); POTASSIUM 3.7 mmol/L (3.5-5.1)
[2018-12-25 19:08] LABS: INR 1.4; PROTIME 14.8 Seconds (9.20-11.50)
[2018-12-25 19:19] LABS: ALBUMIN 3.9 g/dL (3.4-5.0); TOTAL PROTEIN 7.4 g/dL (6.4-8.2); TROPONIN-I LEVEL 0.23 ng/mL (<0.06)
[2018-12-25 20:13] VITALS: BP 142/73
[2018-12-25 21:15] VITALS: BP 140/68
[2018-12-26] VITALS: BP 123/60
[2018-12-26 02:43] LABS: URINE BILIRUBIN NEGATIVE (Negative); URINE BLOOD NEGATIVE (Negative); URINE CLARITY CLEAR; URINE COLOR YELLOW; URINE GLUCOSE-RANDOM NEGATIVE (Negative); URINE KETONES NEGATIVE (Negative); URINE LEUKOCYTES-REFLEX NEGATIVE (Negative); URINE NITRITE-REFLEX NEGATIVE (Negative); URINE PROTEIN NEGATIVE (Negative); URINE UROBILINOGEN 0.2 E.U./dl (0.2-1.0)
[2018-12-26 02:50] LABS: AMP/METHAMP Negative (Negative); BARBITURATES Negative (Negative); BENZODIAZEPINES Negative (Negative); COCAINE Negative (Negative); METHADONE Negative (Negative); OPIATES POSITIVE (Negative); PCP Negative (Negative); THC Negative (Negative)
[2018-12-26 04:00] VITALS: BP 123/72
--- NOTE | 2018-12-26 04:47 | NUR ---
PT RECEIVED FROM ED. ALERT AND ORIENTED X4 BUT FORGETFUL. CALL LIGHT WITHIN REACH AND BED IN LOW POSITION. SAT MAINTAINED IN NC. DENIES PAIN AND SOB. HOURLY ROUNDING DONE FOR PT SAFETY.
[2018-12-26 05:11] LABS: ABSOLUTE LYMPHOCYTES 1.1 thou/uL (0.8-5.3); ABSOLUTE MONOCYTES 0.7 thou/uL (0.0-1.2); ABSOLUTE NEUTROPHILS 4.7 thou/uL (1.6-8.1); BASOPHILS 0.2 %; EOSINOPHILS 0.4 %; HEMATOCRIT 29.8 % (42.0-52.0); HEMOGLOBIN 9.5 gm/dL (14.0-18.0); LYMPHOCYTES 17.3 %; MCH 27.5 pg (26.0-34.0); MCHC 31.9 g/dL (28.0-37.0); MCV 86.1 fL (80.0-100.0); MPV 8.3 fl. (7.2-11.1); NUCLEATED RBCS 0 /100WBC; PLATELET COUNT* 189 thou/uL (150-400); POLYS 72.1 %; RBC 3.46 mil/uL (4.50-6.00); RDW-CV 16.7 % (10.5-14.5); WBC 6.5 thou/uL (4.0-11.0)
[2018-12-26 05:23] LABS: CALCIUM 8.8 mg/dL (8.5-10.1); CREATININE 1.5 mg/dL (0.6-1.3); MAGNESIUM 2.2 mg/dL (1.8-2.4); POTASSIUM 3.4 mmol/L (3.5-5.1)
[2018-12-26 08:15] VITALS: BP 131/67
--- NOTE | 2018-12-26 11:40 | EKG ---
[place] [address] ELECTROCARDIOGRAM REPORT Name: JOSEPHINE ARIAS Room: [address] ADM IN M.R.#: [id number] Admission: 12/25/18 Attend Phys: Katie Maxwell MD Discharge: Date of : 41 Report #: [id number] THIS REPORT FOR: //name// [facility] Test Date: 2018-12-26 Test Time: 08:28:04 Pat Name: JOSEPHINE ARIAS Department: Room: [address] Gender: M Web Services Manager: : 1940 Requested By: Katie Maxwell Order Number: [id number] Reading MD: Ahmet Lewis Measurements Intervals [place] Rate: 69 P: 0 KS: 290 QRS: -82 QRSD: 142 T: 99 QT: 465 QTc: 499 Interpretive Statements Ventricular-paced complexes No further analysis attempted due to paced rhythm Baseline wander in lead(s) V2 Compared to ECG 11/01/2018 15:48:36 Ventricular premature complex(es) no longer present Electronically Signed On 12-26-2018 11:40:43 CDT by Ahmet Lewis [email or web address] <ELECTRONICALLY SIGNED> By: Ahmet Lewis MD, [facility] 12/26/18 1140 0828 0828 Ahmet Lewis MD, [facility] /EPI
[2018-12-26 12:10] VITALS: BP 134/75
--- NOTE | 2018-12-26 16:06 | NUR ---
ASSUMED CARE OF PT AROUND 0730 THIS AM.REFER TO ASSESSMENT. PT PROGRESSING TOWARDS GOALS THIS SHIFT. PT'S PACEMAKER SCHEDULED TO BE INTERROGATED THIS EVENING. CARDIOLOGY CONSULTED THIS SHIFT. PT GIVEN EXTRA DOSE IV LASIX FOR DIURESING. POTASSIUM REPLACED THIS SHIFT. PT HAS ASKED SEVERAL TIMES IF HE CAN GO HOME. POSSIBLE DC HOME TOMORROW IF TESTING UNREMARKABLE AND PT'S NIGHT UNEVENTFUL. NO OTHER CONCERNS AT THIS TIME. CLWR. WCTM.
[2018-12-26 16:22] VITALS: BP 100/55
--- NOTE | 2018-12-26 16:47 | NUR ---
PT'S PACEMAKER INTERROGATED AT THIS TIME. RESULTS PLACED TO FRONT OF CHART. PACEMAKER REP REPORTS THERE WAS NO INCIDENCE RECORDED TO DEFIBRILLATOR.
[2018-12-26 20:00] VITALS: BP 130/82
[2018-12-27 00:23] VITALS: BP 127/64
[2018-12-27 04:00] VITALS: BP 140/65
--- NOTE | 2018-12-27 05:17 | NUR ---
PT CARE ASSUMED AT 1930. SAT MAINTAINED IN RA. ALERT AND ORIENTED X4, FORGETFUL AT TIMES. CALL LIGHT WITHIN REACH AND BED IN LOW POSITION. C/O PAIN, MEDICATION GIVEN PER EMAR. HOURLY ROUNDING DONE FOR PT SAFETY.
[2018-12-27 05:45] LABS: CALCIUM 8.6 mg/dL (8.5-10.1); CREATININE 1.6 mg/dL (0.6-1.3); POTASSIUM 3.8 mmol/L (3.5-5.1)
[2018-12-27 08:00] VITALS: BP 118/61
--- NOTE | 2018-12-27 08:30 | NUR ---
RECEIVED REPORT AND ASSUMED CARE OF PT AT 0730.PT IS A/OX4.TRACING AV/A PACED ON THE MONITOR.ON RA.IV PATENT AND SALINE LOCKED.UP WITH WALKER.PT IS LITTLE FORGETFUL BUT VERY CALM AND COOPERATIVE.NO COMPLAINTS OF PAIN.CALL LIGHT AND FALL PRECAUTIONS IN PLACE.WILL CONTINUE TO MONITOR.
[2018-12-27 12:00] VITALS: BP 106/48
--- NOTE | 2018-12-27 13:19 | NUR ---
Pt is A&O. Resides at home with his and granddtr. Independent. Pt has a walker that he can use for mobility. Pt has a home bipap, no home o2. Hx of [facility]. Pt states that he has been to skilled before. Pt's goal is to return home at me. Following for disposition.
[2018-12-27 15:52] VITALS: BP 110/44
--- NOTE | 2018-12-27 17:27 | NUR ---
VSS.TRACING A/AV PACED WITH BBB WITH PVCS ON THE MONITOR.ON RA.IV PATENT AND SALINE LOCKED.UP WITH ASSIST.PT USES WALKER TO THE BATHROOM.A/OX4.FORGETFUL SOMETIMES.NO COMPLAINTS OF PAIN.NO SKIN ISSUES.PT REMAIN CALM AND COOPERATIVE FOR THE ENTIRE DAY.CALL LIGHT AND FALL PRECAUTIONS IN PLACE.POSSIBLE DISCHARGE TOMORROW.WILL CONTINUE TO MONITOR FOR REST OF THE SHIFT.
[2018-12-27 20:00] VITALS: BP 94/47
[2018-12-28] VITALS: BP 104/57
[2018-12-28 04:00] VITALS: BP 109/52
[2018-12-28 05:31] LABS: ABSOLUTE EOSINOPHILS 0.1 thou/uL (0.0-0.7); ABSOLUTE LYMPHOCYTES 1.4 thou/uL (0.8-5.3); ABSOLUTE NEUTROPHILS 3.8 thou/uL (1.6-8.1); BASOPHILS 0.3 %; EOSINOPHILS 0.9 %; HEMATOCRIT 29.9 % (42.0-52.0); HEMOGLOBIN 9.7 gm/dL (14.0-18.0); LYMPHOCYTES 22.2 %; MCHC 32.5 g/dL (28.0-37.0); MCV 86.1 fL (80.0-100.0); MONOCYTES 15.8 %; MPV 8.2 fl. (7.2-11.1); NUCLEATED RBCS 0 /100WBC; PLATELET COUNT* 188 thou/uL (150-400); POLYS 60.8 %; RBC 3.48 mil/uL (4.50-6.00); RDW-CV 17.1 % (10.5-14.5); WBC 6.3 thou/uL (4.0-11.0)
[2018-12-28 06:34] LABS: CREATININE 1.8 mg/dL (0.6-1.3); POTASSIUM 3.7 mmol/L (3.5-5.1)
[2018-12-28 08:00] VITALS: BP 102/51
--- NOTE | 2018-12-28 10:00 | NUR ---
RECEIVED REPORT AND ASSUMED CARE OF PT AT 0730.PT IS A/OX4.TRACING V/AV PACED ON THE MONITOR.IV PATENT AND SALINE LOCKED.ON RA.UP WITH WALKER.NO SKIN ISSUES,NO CHEST PAIN.PLAN TO DISCHARGE TODAY.CALL LIGHT NAD FALL PRECAUTIONS IN PLACE .WILL CONTINUE TO MONITOR.
[2018-12-28 12:46] VITALS: BP 102/46
[2018-12-28] MEDS ORDERED: XANAX 0.5 MG0.5 M1 PO (13:08)
--- NOTE | 2018-12-28 14:20 | NUR ---
PT OK TO DISCHARGE.ALL DISCHARGE PAPER WORK COMPLETED.IV AND HEART MONITOR TAKEN OUT.HEART MONITOR RETURNED TO NURSING STATION.DISCHARGE EDUCATION GIVEN WITH FOLLOW UP AND DISCHARGE INSTRUCTION.PT WAITING ON ROOM FOR HIS RIDE.
== END 2018-12-28 15:36 | disposition home or self-care (01) | DRG 291 ==
LOC: M.ERS 18:00 → M.2W 19:04 → M.TBA-ER 19:04 → M.2W 20:03
PROVIDERS: Internal Medicine; Internal Medicine Cardiovascular Disease; Personal Emergency Response Attendant; ADMIT Family Medicine
PROC: 4B02XTZ Measurement of Cardiac Defibrillator, External Approach (ICD-10-PCS; principal; 2018-12-25)
DX: I13.0 Hypertensive heart and chronic kidney disease with heart failure and stage 1 through stage 4 chronic kidney disease, or unspecified chronic kidney disease (principal); I50.43 Acute on chronic combined systolic (congestive) and diastolic (congestive) heart failure; D68.59 Other primary thrombophilia; Z96.659 Presence of unspecified artificial knee joint; I25.10 Atherosclerotic heart disease of native coronary artery without angina pectoris; I48.2 Chronic atrial fibrillation; N18.3 Chronic kidney disease, stage 3 (moderate); I27.20 Pulmonary hypertension, unspecified; I87.2 Venous insufficiency (chronic) (peripheral); F32.9 Major depressive disorder, single episode, unspecified; F41.9 Anxiety disorder, unspecified; F03.90 Unspecified dementia, unspecified severity, without behavioral disturbance, psychotic disturbance, mood disturbance, and anxiety; E87.6 Hypokalemia; Z88.8 Allergy status to other drugs, medicaments and biological substances; Z90.49 Acquired absence of other specified parts of digestive tract; Z88.2 Allergy status to sulfonamides; Z95.5 Presence of coronary angioplasty implant and graft; I25.2 Old myocardial infarction; Z79.01 Long term (current) use of anticoagulants; Z82.49 Family history of ischemic heart disease and other diseases of the circulatory system; Z87.891 Personal history of nicotine dependence

== ENCOUNTER 2019-02-11 19:54 | Inpatient (IN) | payer OTHER ==
[~2019-02-11] VITALS: Ht 172.7 cm; Wt 89.8 kg
[2019-02-11 20:05] VITALS: BP 154/87
[2019-02-11] MEDS ORDERED: XANAX XR PO (20:10)
[2019-02-11] MEDS ORDERED: VITAMIN D3400 UNIT PO (20:12)
[2019-02-11] MEDS ORDERED: NITROGLYCERIN0.4 MG SUBLING (20:13)
[2019-02-11] MEDS ORDERED: VITAMIN B-12500 MC5 (20:13)
[2019-02-11] MEDS ORDERED: ZANTAC 150MG T150 MG PO (20:14)
[2019-02-11 20:19] LABS: ABSOLUTE BASOPHILS 0.1 thou/uL (0.0-0.2); ABSOLUTE EOSINOPHILS 0.1 thou/uL (0.0-0.7); ABSOLUTE LYMPHOCYTES 1.4 thou/uL (0.8-5.3); ABSOLUTE MONOCYTES 1.1 thou/uL (0.0-1.2); ABSOLUTE NEUTROPHILS 5.5 thou/uL (1.6-8.1); BASOPHILS 0.8 %; EOSINOPHILS 0.8 %; HEMATOCRIT 33.4 % (42.0-52.0); HEMOGLOBIN 10.6 gm/dL (14.0-18.0); LYMPHOCYTES 17.3 %; MCH 27.1 pg (26.0-34.0); MCHC 31.9 g/dL (28.0-37.0); MCV 84.9 fL (80.0-100.0); MONOCYTES 13.3 %; MPV 7.5 fl. (7.2-11.1); NUCLEATED RBCS 0 /100WBC; PLATELET COUNT* 252 thou/uL (150-400); POLYS 67.8 %; RBC 3.93 mil/uL (4.50-6.00); RDW-CV 17.4 % (10.5-14.5); WBC 8.2 thou/uL (4.0-11.0)
[2019-02-11 20:29] LABS: CALCIUM 9.3 mg/dL (8.5-10.1); CREATININE 1.8 mg/dL (0.6-1.3); POTASSIUM 3.9 mmol/L (3.5-5.1)
[2019-02-11 20:30] LABS: APTT 42.2 Seconds (25.0-31.3); INR 1.4; PROTIME 14.1 Seconds (9.20-11.50)
[2019-02-11 20:45] LABS: MAGNESIUM 2.3 mg/dL (1.8-2.4); TOTAL BILIRUBIN 0.7 mg/dL (<0.1-1.0); TOTAL PROTEIN 7.6 g/dL (6.4-8.2); TROPONIN-I LEVEL 0.23 ng/mL (<0.06)
[2019-02-11 21:50] VITALS: BP 125/70
[2019-02-11 22:00] VITALS: BP 136/80
[2019-02-12] VITALS (7 sets, daily range): BP systolic 108–171; BP diastolic 53–81
[2019-02-12] MEDS ORDERED: LIDODERM1 EACH TRANSDERM (11:32)
--- NOTE | 2019-02-12 11:55 | CARD ---
[address] [address] CARDIAC CATH REPORT Name: JOSEPHINE ARIAS Jeannine Room: [address] IN [facility]#: [id number] Admission: 02/11/19 Attend Phys: Roger Brambila, Discharge: Date of : 41 Report #: [id number] THIS REPORT FOR: //name// APPROVED REPORT Study performed: 02/12/2019 08:25:40 Patient Details Patient Status: In-Patient Room #: 225 The patient is a 79 year-old male Event Personnel Taisha Pappas RN RN, Licha Frausto, Eduard Lewis Blick, David Dirt Shoveler Procedures Performed Art Access - R femoral artery* Coronaries Angiography and Bypass Grafts [id number] [facility] Indication Unstable angina , Chest pain Risk Factors Peripheral Vascular Disease, Hypercholesterolemia, Coronary Artery Disease Previous Procedures/Diagnoses Previous CABGPrevious PCI, Previous Valve Surgery, Previous CHF Procedure Narrative The patient was brought electively to the Cardiac Catheterization Laboratory and was prepped and draped in a sterile manner. The right femoral was infiltrated with 2% Lidocaine subcutaneous anesthesia. A 6Fr x 12cm Ultimum sheath was inserted into the right femoral artery. Coronary angiography was performed using coronary diagnostic catheters. The left coronary system was accessed and visualized with a Diagnostic catheter. Closure device was deployed with a 6 Fr Angioseal. The patient tolerated the procedure well and there were no complications associated with the procedure. There was no hematoma. SVG to circumflex visualized with jr4 catheter. SVG to rca visualized with mtp catheter. MARIN graft visualized with marin catheter by flush injection in left subclavian artery. RCA had been visualized in 2017 and noted to be chronically occluded so it [place] [address] CARDIAC CATH REPORT Name: JOSEPHINE ARIAS Room: [address]#: [id number] Admission: 02/11/19 Attend Phys: Roger Brambila, Discharge: Date of : 41 Report #: [id number] Intraoperative Conscious Sedation No sedation given. Contrast Type and Amount: Visipaque 130 ml Coronary Angiography The patient's coronary anatomy is right dominant. Jena Artery Percent Stenosis Patent marin graft noted to lad. Patent svg to diagonal with jump graft to om branch. Patent svg to olivier and pda branch of rca noted. Diagnostic Cath Left Main 0% stenosis LAD 90% mid stenosis Diagonal 1 proximal stent noted that was 100% chronically occluded Circumflex proximal stent with 0% stenosis OM1 100% chronically occluded Right Coronary not visualized but noted to be 100% chronically occluded during cath in 2017 Left Ventriculography Left Ventriculography was not performed. Hemodynamics The aortic pressure is 126/59 mmHg with a mean of 56 mmHg. Conclusion 1. patent marin graft to lad, patent svg to diagonal and circumflex, and patent svg to pda and olivier branches of rca 2. 90% mid stenosis of lad 3. chronically occluded stent in diagonal artery 4. patent stent in proximal circumflex 5. rca had previously been demonstrated to be chronically occluded in 2017 6. suspect noncardiac [place] [address] CARDIAC CATH REPORT Name: JOSEPHINE ARIAS Room: [address]#: [id number] Admission: 02/11/19 Attend Phys: Roger Brambila, Discharge: Date of : 42 Report #: [id number] Cardiac Rehabilitation Referral [facility] <ELECTRONICALLY SIGNED> By: Neftali Gamboa MD, [facility] 02/12/19 1155 1155 [id number] Gamboa MD, FACC /INF
--- NOTE | 2019-02-13 10:09 | CON ---
[address] [address] CONSULTATION Name: JUANAJOSEPHINE L Room: [address]R.#: [id number] Admission: 02/11/19 Attend Phys: Roger Brambila, Discharge: 02/12/19 Date of : 42 Report #: [id number] THIS REPORT FOR: //name// CC: Erendira Brambila DATE OF SERVICE: 02/12/2019 CARDIOLOGY CONSULTATION HISTORY OF PRESENT ILLNESS: The patient is a 79-year-old white male who I was asked to see in the hospital today after he complained of chest pain. The patient had previous 5-vessel bypass surgery with aortic valve replacement, mitral valve repair and a maze procedure at [facility] by Dr. Monique years ago. He has a history of paroxysmal atrial fibrillation. The procedure was performed in 2010 using a tissue valve. He subsequently underwent implantation of a biventricular defibrillator at [facility] in 2017. Recently, he has been followed by my partner, Dr. Membreno. He has a history of chronic kidney disease. He has had multiple stents. His last stent was apparently several years ago. His last cardiac catheterization was apparently performed at [facility]. There was a catheterization by myself here at [facility] in 08/2016 that showed a 90% narrowing in the mid LAD, 90% narrowing of the first diagonal branch and second marginal branch had 70% stenosis. The right coronary had a stent that was chronically occluded and there was a patent MARIN graft to the LAD. There were 2 vein grafts, the first went to the diagonal with a jump graft to the circumflex and the second vein graft to the posterolateral branch to the right coronary artery was a jump graft to the posterior descending. Aortic root injection showed no significant aortic insufficiency. The left subclavian artery was tortuous and I was unable to cannulate the takeoff of the MARIN graft, although a flush injection showed that the MARIN graft was patent. The patient actually just had a nuclear stress test in October of this year that showed a defect to the inferior wall that was fixed. No ischemia was identified. The ejection fraction was only 17%. His most recent echocardiogram in August of this year showed an ejection fraction of only 25-30% with left atrial enlargement, tissue aortic valve, no significant valve stenosis, moderate mitral regurgitation. The patient was last admitted here to [facility] in December after his defibrillator went off. He was evaluated and sent home. States he was doing well. Over the last few days, he has had intermittent chest pain. It is not related to meals or exertion. He is not very active because of his age. He uses a walker. He has had no recent bleeding, fever or cough. Denied any belch with the episode. He did feel short of breath. No diaphoresis or nausea. Took a nitroglycerin that seemed to help. He came to the hospital last night and was admitted. PAST MEDICAL HISTORY: Otherwise, he [place] [address] CONSULTATION Name: JOSEPHINE ARIAS Room: [address]#: [id number] Admission: 02/11/19 Attend Phys: Roger Brambila, Discharge: 02/12/19 Date of : 42 Report #: [id number] defibrillator. He has a history of hypertension and has a history of atrial fibrillation. MEDICATIONS: Consists of carvedilol, Flomax, Effexor, Entresto, Xarelto, ranitidine. ALLERGIES: He has intolerance to AMIODARONE, SPIRONOLACTONE and STATIN DRUGS. FAMILY HISTORY: Heart disease runs in the family. SOCIAL HISTORY: He is . He and his live in [place]. Quit smoking years ago. No alcohol abuse. REVIEW OF SYSTEMS: He has had history of stroke and asthma. He does have chronic kidney disease. No cancer. No psychiatric illness. No chronic skin condition. PHYSICAL EXAMINATION: GENERAL: Revealed an elderly, frail-appearing male, lying in bed. He appeared in no acute distress. VITAL SIGNS: He has a blood pressure of 120/60, pulse 60. He is afebrile. HEENT: He was anicteric. Conjunctivae pink. Mucous membranes were moist. NECK: Veins do not appear distended. CHEST: Clear to auscultation. CARDIOVASCULAR: Regular rate and rhythm, grade 2 systolic ejection murmur. ABDOMEN: Soft. EXTREMITIES: Had no edema. Dorsalis pedis pulse could not be palpated. SKIN: Cool and dry. NEUROLOGIC: Nonfocal. LABORATORY DATA: His ECG shows what appears to represent atrial fibrillation with a ventricular paced rhythm, occasional PVC. His workup in the Emergency Room last night, he had a portable chest x-ray that showed normal heart size, clear lung waldrop, possible small left effusion. Carotid Doppler study in November showed plaque in the carotid bulbs; suggest 60-70% stenosis. CT scan of the head in October of this year after a fall showed no acute abnormality. His lab work; sodium 139, BUN 31, creatinine 1.8 and it was actually 2.5 in August. Glucose 192. His liver function studies were normal. Troponin 0.25, it was actually 0.22 in October. His white blood cell count is 8.2, hemoglobin 10.6, it was 9.9 in September. IMPRESSION/RECOMMENDATIONS: 1. Unstable angina. Recommend cardiac catheterization. 2. Chronic kidney disease. The patient will be at risk for acute tubular necrosis. 3. Cardiomyopathy. The patient is on Entresto. [address] [place] [address] CONSULTATION Name: JOSEPHINE ARIAS Room: [address]#: [id number] Admission: 02/11/19 Attend Phys: Roger Brambila, Discharge: 02/12/19 Date of : 42 Report #: [id number] 4. Previous implantation of defibrillator. 5. Anemia. No history of bleeding. 6. Atrial fibrillation. The patient is on Xarelto. I will hold at this time. <ELECTRONICALLY SIGNED> By: Neftali Gamboa MD, FACC 02/13/19 1009 0740 [id number] Gamboa MD, FACC /nt
--- NOTE | 2019-02-14 14:40 | EKG ---
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: CHRISTOPHER : 1940 Requested By: Eros Garcia Order Number: [id number] MD: Wenceslao Membreno Measurements Intervals [place] Rate: 92 P: SC: QRS: 254 QRSD: 159 T: 71 QT: 418 QTc: 518 Interpretive Statements Atrial sensing with ventricular pacing Unifocal premature ventricular contractions No further analysis attempted due to paced rhythm Baseline wander in lead(s) V6 Compared to ECG 12/26/2018 08:28:04 No significant changes Electronically Signed On 02-14-2019 14:40:04 CDT by Wenceslao Membreno [email or web address] <ELECTRONICALLY SIGNED> By: Wenceslao Membreno MD, FACC 02/14/19 1440 57 57 Wenceslao Membreno MD, FAC /EPI
== END 2019-02-12 18:14 | disposition home or self-care (01) | DRG 287 ==
LOC: M.ERS 19:54 → M.TBA-ER 21:04 → M.2W 21:04
PROVIDERS: Emergency Medicine Emergency Medical Services; ADMIT Family Medicine
PROC: B2181ZZ Fluoroscopy of Left Internal Mammary Bypass Graft using Low Osmolar Contrast (ICD-10-PCS; principal; 2019-02-12)
PROC: B2111ZZ Fluoroscopy of Multiple Coronary Arteries using Low Osmolar Contrast (ICD-10-PCS; principal; 2019-02-12)
PROC: B2131ZZ Fluoroscopy of Multiple Coronary Artery Bypass Grafts using Low Osmolar Contrast (ICD-10-PCS; principal; 2019-02-12)
PROC: 4A023N7 Measurement of Cardiac Sampling and Pressure, Left Heart, Percutaneous Approach (ICD-10-PCS; principal; 2019-02-12)
DX: R07.89 Other chest pain (principal); T82.897A Other specified complication of cardiac prosthetic devices, implants and grafts, initial encounter; I25.110 Atherosclerotic heart disease of native coronary artery with unstable angina pectoris; I13.0 Hypertensive heart and chronic kidney disease with heart failure and stage 1 through stage 4 chronic kidney disease, or unspecified chronic kidney disease; I50.22 Chronic systolic (congestive) heart failure; N18.4 Chronic kidney disease, stage 4 (severe); I42.9 Cardiomyopathy, unspecified; I48.0 Paroxysmal atrial fibrillation; Z96.652 Presence of left artificial knee joint; D64.9 Anemia, unspecified; F32.9 Major depressive disorder, single episode, unspecified; F41.9 Anxiety disorder, unspecified; I27.20 Pulmonary hypertension, unspecified; Z95.2 Presence of prosthetic heart valve; Z95.5 Presence of coronary angioplasty implant and graft; Z95.1 Presence of aortocoronary bypass graft; Z87.891 Personal history of nicotine dependence; Z95.810 Presence of automatic (implantable) cardiac defibrillator; Z79.01 Long term (current) use of anticoagulants; Z79.899 Other long term (current) drug therapy; Z88.2 Allergy status to sulfonamides; Z88.8 Allergy status to other drugs, medicaments and biological substances; Z82.49 Family history of ischemic heart disease and other diseases of the circulatory system; Y71.8 Miscellaneous cardiovascular devices associated with adverse incidents, not elsewhere classified; Y92.89 Other specified places as the place of occurrence of the external cause

== ENCOUNTER → 2019-05-09 | Outpatient (CLI) | payer OTHER ==
[~2019-05-09] MED LIST changes: +LIDODERM1 EACH TRANSDERM; +NITROGLYCERIN0.4 MG SUBLING; +VITAMIN B-12500 MC5; +VITAMIN D3400 UNIT PO; +XANAX XR PO; +ZANTAC 150MG T150 MG PO
[2019-05-09 15:31] LABS: % SATURATION 5 % (20-39); IRON 19 ug/dL (50-175)
[2019-05-09 15:46] LABS: CALCIUM 8.8 mg/dL (8.5-10.1); CREATININE 1.6 mg/dL (0.6-1.3); PHOSPHORUS* 3.5 mg/dL (2.5-4.9)
[2019-05-09 16:12] LABS: ALBUMIN 3.8 g/dL (3.4-5.0); CREATININE 1.6 mg/dL (0.6-1.3); PHOSPHORUS* 3.4 mg/dL (2.5-4.9); POTASSIUM 3.7 mmol/L (3.5-5.1)
== END ==
LOC: M.LAB 14:16
PROVIDERS: Internal Medicine Nephrology
DX: D64.9 Anemia, unspecified (principal); I10 Essential (primary) hypertension

== ENCOUNTER 2019-06-13 22:07 | Inpatient (IN) | payer OTHER ==
[~2019-06-13] VITALS: Ht 172.7 cm; Wt 93.3 kg
[2019-06-13 22:07] VITALS: BP 159/91
[~2019-06-13 22:07] MED LIST changes: -VITAMIN B-12500 MC5; +VITAMIN B-12500 MC5 SUBLING
[2019-06-13] MEDS ORDERED: IRON240 M1 PO (22:31)
[2019-06-13 22:34] LABS: ABSOLUTE LYMPHOCYTES 0.9 thou/uL (0.8-5.3); ABSOLUTE MONOCYTES 0.7 thou/uL (0.0-1.2); ABSOLUTE NEUTROPHILS 5.6 thou/uL (1.6-8.1); BASOPHILS 0.3 %; EOSINOPHILS 0.1 %; HEMATOCRIT 31.3 % (42.0-52.0); HEMOGLOBIN 9.9 gm/dL (14.0-18.0); LYMPHOCYTES 12.8 %; MCH 25.6 pg (26.0-34.0); MCHC 31.7 g/dL (28.0-37.0); MCV 80.7 fL (80.0-100.0); MONOCYTES 10.1 %; NUCLEATED RBCS 0 /100WBC; PLATELET COUNT* 245 thou/uL (150-400); POLYS 76.7 %; RBC 3.88 mil/uL (4.50-6.00); RDW-CV 17.9 % (10.5-14.5); WBC 7.3 thou/uL (4.0-11.0)
[2019-06-13 22:38] LABS: CALCIUM 9.1 mg/dL (8.5-10.1); CREATININE 1.7 mg/dL (0.6-1.3); POTASSIUM 4.9 mmol/L (3.5-5.1)
[2019-06-13 22:41] LABS: INR 1.5; PROTIME 14.7 Seconds (9.20-11.50)
[2019-06-13 22:49] LABS: ALBUMIN 4.2 g/dL (3.4-5.0); TOTAL BILIRUBIN 0.9 mg/dL (<0.1-1.0); TOTAL PROTEIN 7.6 g/dL (6.4-8.2)
[2019-06-13] MEDS ORDERED: XANAX XR2 MG PO (22:54)
[2019-06-13] MEDS ORDERED: XANAX XR1 MG PO (22:55)
[2019-06-14 04:00] VITALS: BP 132/78
[2019-06-14 07:45] VITALS: BP 153/87
--- NOTE | 2019-06-14 09:59 | EKG ---
[place] [address] ELECTROCARDIOGRAM REPORT Name: JOSEPHINE ARIAS Room: [place] [address] ADM IN [facility].#: [id number] Admission: 06/13/19 Attend Phys: Odalis Gomez MD Discharge: Date of : 42 Report #: [id number] THIS REPORT FOR: //name// [facility] ED Test Date: 2019-06-13 Test Time: 22:21:55 Pat Name: JOSEPHINE ARIAS Department: Room: [facility] Gender: M Silk Screen Repairer: LUIS EDUARDO : 1940 Requested By: Monica Hardin Order Number: [id number] MD: Neftali Gamboa Measurements Intervals [place] Rate: 97 P: NE: QRS: -86 QRSD: 125 T: 25 QT: 380 QTc: 483 Interpretive Statements Afib/flut and V-paced complexes and pvc's No further analysis attempted due to paced rhythm Baseline wander in lead(s) V1 Compared to ECG 02/11/2019 19:58:20 no change Electronically Signed On 06-14-2019 9:59:03 CDT by Neftali Gamboa [email or web address] <ELECTRONICALLY SIGNED> By: Neftali Gamboa MD, FAC 06/14/19 0959 20 20 Neftali Gamboa MD, FAC /EPI
--- NOTE | 2019-06-14 14:16 | 2DMMODE ---
[place] [address] 2 D/M-MODE ECHOCARDIOGRAM Name: JOSEPHINE ARIAS Room: [address] IN [facility]#: [id number] Admission: 06/13/19 Attend Phys: Odalis Gomez, Discharge: Date of : 42 Date of Service: 06/14/19 1416 Report #: [id number] THIS REPORT FOR: //name// APPROVED REPORT Study performed: 06/14/2019 11:09:11 EXAM: Comprehensive 2D, Doppler, and color-flow Echocardiogram Patient Location: In-Patient Room #: ER 16 BSA: 2.05 HR: 70 bpm BP: 141/89 mmHg Other Information Study Quality: Good Indications Dyspnea 2D Dimensions IVSd: 11.70 (7-11mm) LVOT Diam: 22.51 (18-24mm) LVDd: 64.85 mm PWd: 8.80 (7-11mm) Ascending Ao: 27.28 (22-36mm) LVDs: 56.08 (25-40mm) Aortic Root: 28.94 mm Volumes Left Atrial Volume (Systole) LA ESV Index: 50.10 mL/m2 Aortic Valve AoV Peak Bryan.: 2.14 m/s AO Peak Gr.: 18.37 mmHg LVOT Max P.71 mmHg AO Mean Gr.: 9.82 mmHg LVOT Mean P.25 mmHg LVOT Max V: 0.82 m/s AO V2 VTI: 35.03 cm LVOT Mean V: 0.51 m/s ANCA (VTI): 1.88 cm2 LVOT V1 VTI: 16.57 cm Mitral Valve MV Decel. Time: 232.37 ms MV PHT: 67.39 ms MVA (PHT): 3.26 [place] [address] 2 D/M-MODE ECHOCARDIOGRAM Name: JOSEPHINE ARIAS Room: [address] IN [facility]#: [id number] Admission: 06/13/19 Attend Phys: Odalis Gomez, Discharge: Date of : 42 Date of Service: 06/14/19 1416 Report #: [id number] TDI Medial E' Bryan.: 0.07 m/s Lateral E' Bryan.: 0.08 m/s Pulmonary Valve PV Peak Bryan.: 0.78 m/s PV Peak Gr.: 2.45 mmHg Tricuspid Valve RAP Estimate: 5.00 mmHg TR Peak Gr.: 38.35 mmHg RVSP: 43.35 mmHg PA Pressure: 43.35 mmHg Left Ventricle Left ventricle is mildly dilated. inferior wall akinesis noted There is normal left ventricular wall thickness. Left ventricular systolic function is severely decreased. LVEF is 20-25%. This study is not technically sufficient to allow evaluation of the LV diastolic function. Right Ventricle The right ventricle is normal size. The right ventricular systolic function is normal. Pacemaker lead is present in the right ventricle. Atria Left atrium is moderately dilated. Pacemaker lead is present in the right atrium. The right atrium size is normal. Aortic Valve Bioprosthetic aortic valve is present. No aortic regurgitation is present. There mild aortic valvular stenosis. Mitral Valve Mitral Valve repair Moderate mitral regurgitation. No evidence of mitral valve stenosis. Tricuspid Valve The tricuspid valve is normal in structure. Moderate tricuspid regurgitation. estimated pa pressure 45 mm hg Pulmonic Valve The pulmonary valve is normal in structure. Mild pulmonic regurgitation. Great Vessels The aortic root is normal in size. IVC is normal in size and collapses >50% [place] [address] 2 D/M-MODE ECHOCARDIOGRAM Name: JOSEPHINE ARIAS Room: [address] IN [facility]#: [id number] Admission: 06/13/19 Attend Phys: Odalis Gomez, Discharge: Date of : 42 Date of Service: 06/14/19 1416 Report #: [id number] Pericardium There is no pericardial effusion. <Conclusion> LVEF is 20-25%. Left atrium is moderately dilated. Bioprosthetic aortic valve is present. There mild aortic valvular stenosis. Moderate mitral regurgitation. Moderate tricuspid regurgitation. estimated pa pressure 45 mm hg <ELECTRONICALLY SIGNED> By: Neftali Gamboa MD, FACC 06/14/191415 15 15 Neftali Gamboa MD, FACC /INF
[2019-06-14 15:47] VITALS: BP 116/70
[2019-06-14 16:45] VITALS: BP 134/74
[2019-06-14 18:04] VITALS: BP 138/52
[2019-06-14 19:30] VITALS: BP 126/82
[2019-06-15 00:35] VITALS: BP 127/74
[2019-06-15 00:48] LABS: HEMATOCRIT 28.9 % (42.0-52.0); HEMOGLOBIN 9.4 gm/dL (14.0-18.0); MCH 26.2 pg (26.0-34.0); MCHC 32.6 g/dL (28.0-37.0); MCV 80.4 fL (80.0-100.0); MPV 7.1 fl. (7.2-11.1); RBC 3.59 mil/uL (4.50-6.00); RDW-CV 18.1 % (10.5-14.5); WBC 7.9 thou/uL (4.0-11.0)
[2019-06-15 01:55] LABS: ALBUMIN 3.7 g/dL (3.4-5.0); CALCIUM 9.1 mg/dL (8.5-10.1); CREATININE 1.7 mg/dL (0.6-1.3); MAGNESIUM 2.1 mg/dL (1.8-2.4); POTASSIUM 3.6 mmol/L (3.5-5.1); TOTAL BILIRUBIN 1.1 mg/dL (<0.1-1.0); TOTAL PROTEIN 6.3 g/dL (6.4-8.2)
[2019-06-15 04:00] VITALS: BP 120/72
[2019-06-15 08:00] VITALS: BP 134/61
--- NOTE | 2019-06-15 09:20 | CON ---
[address] [address] CONSULTATION Name: ARIASJOSEPHINE Jeannine Room: [address] IN .R.#: [id number] Admission: 06/13/19 Attend Phys: Odalis Gomez MD Discharge: Date of : 41 Report #: [id number] THIS REPORT FOR: //name// CC: Odalis Bruno INDICATION: Congestive heart failure. HISTORY OF PRESENT ILLNESS: The patient is a very pleasant 79-year-old gentleman who is well known to myself. He has an ischemic cardiomyopathy with an ejection fraction of approximately 20-25%. He has a remote history of coronary artery bypass grafting with mitral valve repair, aortic valve replacement and Kwan-Maze procedure for atrial fibrillation. He is status post ICD placement for primary prevention. He has had increasing dyspnea on exertion and orthopnea to the point where he finally presented to the Emergency Room for further treatment. By laboratory evaluation and chest x-ray, he appears to be in congestive heart failure. He has atrial fibrillation. He is chronically anticoagulated. He is having no bleeding problems. He denies chest pain. He is without other cardiac complaints. PAST MEDICAL HISTORY: 1. Coronary artery disease. 2. Ischemic cardiomyopathy. 3. Bioprosthetic aortic valve replacement. 4. Mitral valve repair. 5. Kwan-Maze procedure. 6. Coronary artery bypass grafting. 7. Paroxysmal atrial fibrillation. 8. ICD in place for primary prevention. 9. Chronic systolic heart failure. 10. Chronic renal insufficiency. 11. Chronic anticoagulation. 12. Hypertension. ALLERGIES: AMIODARONE, SPIRONOLACTONE, STATINS, SULFA. HOME MEDICATIONS: Allopurinol 300 mg daily, alprazolam 1 mg daily, carvedilol 3.125 mg b.i.d., vitamin D 400 units daily, B12 500 mcg daily, iron gluconate 240 mg daily, furosemide 80 mg q.a.m. and 40 mg q.p.m., hydrocodone/acetaminophen 7.5/325 one tablet q.6 hours p.r.n., Lidoderm patch daily, magnesium oxide 250 mg daily, Nitrostat sublingually p.r.n., potassium chloride 20 mEq b.i.d., prednisone 12 mg daily, Zantac 150 mg daily, Xarelto 15 mg at dinnertime, Florastor 250 mg daily, Entresto 24/26 [place] [address] CONSULTATION Name: JOSEPHINE ARIAS Jeannine Room: [address]#: [id number] Admission: 06/13/19 Attend Phys: Odalis Gomez MD Discharge: Date of : 42 Report #: [id number] b.i.d., Flomax 0.4 mg daily, vitamin B1 100 mg daily, Effexor 37.5 mg b.i.d. SOCIAL HISTORY: The patient does not smoke. He does not drink alcohol. He is . His is in attendance with him. He lives at home with his . FAMILY HISTORY: Noncontributory. PHYSICAL EXAMINATION: VITAL SIGNS: Blood pressure 125/70, pulse is in the 80s and irregular. GENERAL: This is a pleasant gentleman in no distress. Mood and affect appropriate. HEENT: Extraocular muscles intact. Mucous membranes moist. NECK: Shows no obvious jugular venous distention. CHEST: Reveals diminished breath sounds in the bases. CARDIAC: Reveals an irregular rhythm with rate control, soft grade 2/6 systolic ejection murmur. I do not appreciate gallop. ABDOMEN: Reveals normal bowel sounds. The abdomen is soft, nontender. EXTREMITIES: Shows trace pitting edema to the mid tibias bilaterally. LABORATORY DATA: Reviewed. Sodium 139, potassium 4.9, chloride 101, bicarbonate 30, BUN 31, creatinine 1.7, serum glucose 100. LFTs within normal limits. Troponin 0.42. NT-proBNP 6875. White blood cell count 7.3, hemoglobin 9.9, MCV 80.7, platelet count 245,000. Chest x-ray shows mild pulmonary vascular congestion. IMPRESSION AND RECOMMENDATIONS: 1. Udrhu-kf-djukftj systolic heart failure. Agree with IV Lasix for prompt diuresis. We will adjust carvedilol and Entresto as tolerated. We will have the patient take all of his Lasix in the morning when he gets home. 2. Coronary artery disease, presently appears stable. He did have a slight bump in troponin, likely due to congestive heart failure and a type 2 myocardial infarction. I do not believe this represents acute coronary syndrome. We will continue antiplatelet therapy as outlined above. 3. Implantable cardioverter-defibrillator in situ functioning normally by remote interrogations. He has no discharges from his device. 4. Paroxysmal atrial fibrillation. The patient appears to be in atrial fibrillation at this time. He has chronic anticoagulation without bleeding problems. No changes made at this time. 5. Hypertension. Blood pressure adequately controlled on current cardiac regimen. 6. Chronic renal insufficiency, presently appears stable. <ELECTRONICALLY SIGNED> By: Wenceslao Membreno MD, FACC 06/15/19 0920 1540 [id number] Jackie Membreno MD, FACC /nt
[2019-06-15 11:30] VITALS: BP 108/55
[2019-06-15 16:00] VITALS: BP 83/43
[2019-06-15 20:00] VITALS: BP 110/61
[2019-06-16] VITALS: BP 157/64
[2019-06-16 04:00] VITALS: BP 113/64
[2019-06-16 05:19] LABS: CALCIUM 9.1 mg/dL (8.5-10.1); CREATININE 2.4 mg/dL (0.6-1.3); POTASSIUM 3.5 mmol/L (3.5-5.1)
[2019-06-16 05:34] LABS: HEMOGLOBIN 9.9 gm/dL (14.0-18.0); MCH 25.5 pg (26.0-34.0); MCHC 31.8 g/dL (28.0-37.0); MCV 80.3 fL (80.0-100.0); MPV 7.8 fl. (7.2-11.1); RBC 3.86 mil/uL (4.50-6.00); RDW-CV 18.2 % (10.5-14.5); WBC 8.5 thou/uL (4.0-11.0)
[2019-06-16 08:00] VITALS: BP 95/58
[2019-06-16 11:36] VITALS: BP 123/45
[2019-06-16 16:23] VITALS: BP 86/45
[2019-06-16 20:00] VITALS: BP 92/52
[2019-06-17] VITALS: BP 97/54
[2019-06-17 04:00] VITALS: BP 100/56
[2019-06-17 04:43] LABS: HEMATOCRIT 31.4 % (42.0-52.0); MCH 25.5 pg (26.0-34.0); MCHC 31.7 g/dL (28.0-37.0); MCV 80.7 fL (80.0-100.0); MPV 7.5 fl. (7.2-11.1); RBC 3.9 mil/uL (4.50-6.00); RDW-CV 18.1 % (10.5-14.5); WBC 8.4 thou/uL (4.0-11.0)
[2019-06-17 05:00] LABS: CALCIUM 9.1 mg/dL (8.5-10.1); POTASSIUM 3.9 mmol/L (3.5-5.1)
[2019-06-17 08:00] VITALS: BP 100/56
[2019-06-17 11:36] VITALS: BP 104/654
[2019-06-17 16:39] VITALS: BP 83/56
[2019-06-17 20:00] VITALS: BP 109/58
[2019-06-18] VITALS: BP 99/58
[2019-06-18 04:00] VITALS: BP 98/53
[2019-06-18 05:25] LABS: CREATININE 3.4 mg/dL (0.6-1.3); POTASSIUM 4.3 mmol/L (3.5-5.1)
[2019-06-18 08:00] VITALS: BP 99/53
[2019-06-18 13:27] VITALS: BP 90/51
[2019-06-18 17:05] VITALS: BP 111/59
[2019-06-18 18:00] LABS: URINE BILIRUBIN NEGATIVE (Negative); URINE BLOOD TRACE (Negative); URINE CLARITY CLEAR; URINE COLOR YELLOW; URINE GLUCOSE-RANDOM NEGATIVE (Negative); URINE KETONES NEGATIVE (Negative); URINE LEUKOCYTES-REFLEX NEGATIVE (Negative); URINE NITRITE-REFLEX NEGATIVE (Negative); URINE PROTEIN NEGATIVE (Negative); URINE SPECIFIC GRAVITY 1.015 (1.005-1.030); URINE UROBILINOGEN 0.2 E.U./dl (0.2-1.0)
[2019-06-18 20:00] VITALS: BP 166/88
[2019-06-19] VITALS: BP 109/66
[2019-06-19 04:00] VITALS: BP 138/76
[2019-06-19 04:50] LABS: HEMATOCRIT 33.2 % (42.0-52.0); HEMOGLOBIN 10.5 gm/dL (14.0-18.0); MCH 26.2 pg (26.0-34.0); MCHC 31.7 g/dL (28.0-37.0); MCV 82.7 fL (80.0-100.0); MPV 7.6 fl. (7.2-11.1); RBC 4.01 mil/uL (4.50-6.00); RDW-CV 18.7 % (10.5-14.5); WBC 10.3 thou/uL (4.0-11.0)
[2019-06-19 06:21] LABS: ALBUMIN 3.4 g/dL (3.4-5.0); CALCIUM 9.3 mg/dL (8.5-10.1); CREATININE 2.7 mg/dL (0.6-1.3); MAGNESIUM 2.3 mg/dL (1.8-2.4); POTASSIUM 4.3 mmol/L (3.5-5.1); TOTAL BILIRUBIN 1.7 mg/dL (<0.1-1.0); TOTAL PROTEIN 6.7 g/dL (6.4-8.2)
[2019-06-19 08:00] VITALS: BP 115/74
[2019-06-19 14:16] VITALS: BP 81/43
[2019-06-19 17:39] VITALS: BP 94/50
[2019-06-19 20:00] VITALS: BP 82/49
[2019-06-20] VITALS: BP 96/53
[2019-06-20 04:00] VITALS: BP 92/50
[2019-06-20 07:38] LABS: CALCIUM 9.6 mg/dL (8.5-10.1); CREATININE 2.6 mg/dL (0.6-1.3); MAGNESIUM 2.6 mg/dL (1.8-2.4); POTASSIUM 3.7 mmol/L (3.5-5.1)
[2019-06-20 08:00] VITALS: BP 97/52
[2019-06-20 12:07] VITALS: BP 80/48
[2019-06-20 16:45] VITALS: BP 94/49
[2019-06-20 20:00] VITALS: BP 104/58
[2019-06-21] VITALS: BP 118/67
[2019-06-21 04:30] VITALS: BP 99/51
[2019-06-21 08:00] VITALS: BP 111/57
[2019-06-21 08:13] LABS: CALCIUM 9.2 mg/dL (8.5-10.1); CREATININE 2.5 mg/dL (0.6-1.3); MAGNESIUM 2.4 mg/dL (1.8-2.4); POTASSIUM 3.4 mmol/L (3.5-5.1)
[2019-06-21 12:00] VITALS: BP 125/69
[2019-06-21 20:00] VITALS: BP 143/80
[2019-06-22 04:20] VITALS: BP 125/73
[2019-06-22 08:00] VITALS: BP 119/64
[2019-06-22 08:07] LABS: HEMOGLOBIN 9.4 gm/dL (14.0-18.0); MCHC 32.4 g/dL (28.0-37.0); MCV 80.2 fL (80.0-100.0); MPV 7.5 fl. (7.2-11.1); RBC 3.62 mil/uL (4.50-6.00); RDW-CV 18.5 % (10.5-14.5); WBC 5.3 thou/uL (4.0-11.0)
[2019-06-22 08:17] LABS: CALCIUM 9.5 mg/dL (8.5-10.1); CREATININE 1.7 mg/dL (0.6-1.3); MAGNESIUM 2.3 mg/dL (1.8-2.4); POTASSIUM 3.6 mmol/L (3.5-5.1)
[2019-06-22 12:00] VITALS: BP 109/63
[2019-06-22 16:20] VITALS: BP 107/60
[2019-06-22 20:00] VITALS: BP 126/68
[2019-06-23] VITALS (7 sets, daily range): BP systolic 82–136; BP diastolic 42–73
[2019-06-24 04:45] VITALS: BP 138/86
[2019-06-24 08:00] VITALS: BP 116/73
[2019-06-24 12:00] VITALS: BP 81/39
[2019-06-24 15:50] VITALS: BP 77/43
[2019-06-24 18:24] VITALS: BP 126/67
[2019-06-24 19:40] VITALS: BP 118/64
[2019-06-25] VITALS: BP 107/62
[2019-06-25 04:45] LABS: CALCIUM 9.2 mg/dL (8.5-10.1); CREATININE 2.1 mg/dL (0.6-1.3); POTASSIUM 3.5 mmol/L (3.5-5.1)
[2019-06-25 07:49] VITALS: BP 109/54
[2019-06-25 12:50] VITALS: BP 115/60
[2019-06-25 16:55] VITALS: BP 125/67
[2019-06-25 20:10] VITALS: BP 115/66
[2019-06-26] VITALS: BP 123/57
[2019-06-26 04:00] VITALS: BP 131/60
[2019-06-26 04:36] LABS: HEMATOCRIT 29.3 % (42.0-52.0); HEMOGLOBIN 9.4 gm/dL (14.0-18.0); MCH 25.6 pg (26.0-34.0); MCHC 32.1 g/dL (28.0-37.0); MCV 79.7 fL (80.0-100.0); MPV 7.6 fl. (7.2-11.1); RBC 3.67 mil/uL (4.50-6.00); RDW-CV 17.7 % (10.5-14.5); WBC 5.9 thou/uL (4.0-11.0)
[2019-06-26 04:57] LABS: ALBUMIN 3.1 g/dL (3.4-5.0); CALCIUM 9.8 mg/dL (8.5-10.1); CREATININE 1.6 mg/dL (0.6-1.3); MAGNESIUM 1.8 mg/dL (1.8-2.4); POTASSIUM 3.7 mmol/L (3.5-5.1); TOTAL BILIRUBIN 0.6 mg/dL (<0.1-1.0); TOTAL PROTEIN 6.6 g/dL (6.4-8.2)
[2019-06-26 08:00] VITALS: BP 123/63
[2019-06-26 11:48] VITALS: BP 121/61
[2019-06-26 15:39] VITALS: BP 115/70
[2019-06-26 20:00] VITALS: BP 114/66
[2019-06-27] VITALS: BP 120/62
[2019-06-27 04:00] VITALS: BP 122/67
[2019-06-27 08:35] VITALS: BP 103/63
[2019-06-27 16:10] VITALS: BP 94/66
[2019-06-27 20:20] VITALS: BP 112/66
[2019-06-28] VITALS: BP 108/55
[2019-06-28 04:00] VITALS: BP 126/76
[2019-06-28 08:05] VITALS: BP 127/73
[2019-06-28 13:01] LABS: ABSOLUTE EOSINOPHILS 0.2 thou/uL (0.0-0.7); ABSOLUTE LYMPHOCYTES 1.6 thou/uL (0.8-5.3); ABSOLUTE MONOCYTES 0.8 thou/uL (0.0-1.2); ABSOLUTE NEUTROPHILS 3.3 thou/uL (1.6-8.1); BASOPHILS 0.8 %; EOSINOPHILS 3.6 %; HEMOGLOBIN 9.6 gm/dL (14.0-18.0); LYMPHOCYTES 26.5 %; MCH 25.9 pg (26.0-34.0); MCHC 32.1 g/dL (28.0-37.0); MCV 80.5 fL (80.0-100.0); MONOCYTES 13.2 %; MPV 7.5 fl. (7.2-11.1); NUCLEATED RBCS 0 /100WBC; PLATELET COUNT* 351 thou/uL (150-400); POLYS 55.9 %; RBC 3.73 mil/uL (4.50-6.00); WBC 5.9 thou/uL (4.0-11.0)
[2019-06-28 13:02] VITALS: BP 116/68
[2019-06-28 13:17] LABS: ALBUMIN 3.1 g/dL (3.4-5.0); CALCIUM 9.8 mg/dL (8.5-10.1); CREATININE 1.6 mg/dL (0.6-1.3); MAGNESIUM 1.8 mg/dL (1.8-2.4); PHOSPHORUS* 4.7 mg/dL (2.5-4.9); POTASSIUM 3.8 mmol/L (3.5-5.1); TOTAL BILIRUBIN 0.7 mg/dL (<0.1-1.0)
[2019-06-28 16:37] VITALS: BP 97/55
[2019-06-28 20:10] VITALS: BP 98/51
[2019-06-29] VITALS: BP 98/61
[2019-06-29 07:40] VITALS: BP 106/62
[2019-06-29 11:30] VITALS: BP 95/51
[2019-06-29 16:00] VITALS: BP 100/53
[2019-06-29 20:00] VITALS: BP 125/65
[2019-06-30] VITALS: BP 110/55
[2019-06-30 04:00] VITALS: BP 132/60
[2019-06-30 08:00] VITALS: BP 133/75
[2019-06-30 11:17] LABS: BF RBC 6385 /mm3; TOTAL CELL COUNT 4432 /mm3
[2019-06-30 11:30] LABS: INFLUENZA A ANTIGEN Negative (Negative); INFLUENZA B ANTIGEN Negative (Negative)
[2019-06-30 11:34] LABS: ABSOLUTE EOSINOPHILS 0.1 thou/uL (0.0-0.7); ABSOLUTE LYMPHOCYTES 1.5 thou/uL (0.8-5.3); ABSOLUTE NEUTROPHILS 3.5 thou/uL (1.6-8.1); BASOPHILS 0.5 %; HEMATOCRIT 27.9 % (42.0-52.0); LYMPHOCYTES 23.7 %; MCH 25.8 pg (26.0-34.0); MCHC 32.1 g/dL (28.0-37.0); MCV 80.3 fL (80.0-100.0); MONOCYTES 16.6 %; MPV 8.4 fl. (7.2-11.1); NUCLEATED RBCS 0 /100WBC; PLATELET COUNT* 333 thou/uL (150-400); POLYS 57.2 %; RBC 3.48 mil/uL (4.50-6.00); RDW-CV 17.7 % (10.5-14.5); WBC 6.1 thou/uL (4.0-11.0)
[2019-06-30 11:40] LABS: BF LYMPHOCYTES 2 %; BF POLYS 98 %; BF TISSUE 7 /100 WBC
[2019-06-30 11:41] VITALS: BP 120/59
[2019-06-30 11:41] LABS: CLARITY SLIGHTLY HAZY; SOURCE ASCITES; TOTAL VOLUME 6 ml
[2019-06-30 11:45] LABS: ALBUMIN 2.9 g/dL (3.4-5.0); CALCIUM 9.7 mg/dL (8.5-10.1); CREATININE 1.5 mg/dL (0.6-1.3); MAGNESIUM 1.8 mg/dL (1.8-2.4); POTASSIUM 3.4 mmol/L (3.5-5.1); TOTAL BILIRUBIN 0.7 mg/dL (<0.1-1.0); TOTAL PROTEIN 6.6 g/dL (6.4-8.2)
[2019-06-30 11:57] LABS: BE -2.1 mmol/L (-2 to +3); PCO2 30.9 mmHg (35.0-45.0); pH 7.452 (7.340-7.450)
[2019-06-30 12:00] LABS: PO2 148.4 mmHg (75.0-100.0)
[2019-06-30 12:31] LABS: ESR (SEDRATE) 71 mm/hr (0-20)
[2019-06-30 16:15] VITALS: BP 100/58
[2019-06-30 21:14] VITALS: BP 119/64
[2019-07-01] VITALS: BP 126/65
[2019-07-01 04:00] VITALS: BP 129/62
--- NOTE | 2019-07-01 07:41 | CON ---
[address] [address] CONSULTATION Name: ARIASJOSEPHINE Jeannine Room: [address] IN M.R.#: [id number] Admission: 06/13/19 Attend Phys: Wenceslao Membreno MD Discharge: Date of : 42 Report #: [id number] THIS REPORT FOR: //name// CC: Odalisprosper Membreno Erendira [place] DATE OF SERVICE: 06/30/2019 INFECTIOUS DISEASE CONSULTATION ATTENDING PHYSICIAN: Wenceslao Membreno MD REASON FOR EVALUATION: Febrile illness with encephalopathy, suspected possible septic arthritis involving the right knee. HISTORY OF PRESENT ILLNESS: Chart reviewed. Patient examined. This is a 79-year-old gentleman known to myself, seen previously. He has got extensive medical history upon visit associated with cardiovascular system including coronary artery disease, previous aortic valve replacement, had cardiomyopathy with history of congestive heart failure, who presented in excess of 2 weeks ago. At that point, he had progressive dyspnea. He was found to have atrial fibrillation with atrial flutter and V-paced complexes. During his hospitalization, he had experienced encephalopathy, intermittent fevers. Cultures of blood initially were otherwise unremarkable. He did undergo aspiration of his right knee, which was found to be exhibiting evidence of inflammation. Fluid culture did show total count of 4400, 98% polys. Gram stain showed no organisms. Culture is pending. He empirically was started on combination therapy with vancomycin as well as meropenem. He remains quite confused at this point. It is difficult to ascertain exactly what is troubling him. He describes bilateral dorsal foot pain. He is on supplemental oxygen with no evidence of shunt. ALLERGIES: LISTED TO SULFA, STATINS, HALDOL, SPIRONOLACTONE, AMIODARONE. CURRENT MEDICATIONS: Include vancomycin, meropenem, folic acid, venlafaxine, carvedilol, finasteride, famotidine, promethazine, diclofenac, melatonin, allopurinol, tamsulosin, rivaroxaban. PAST MEDICAL HISTORY: As described above, has known coronary artery disease, history of congestive heart failure with cardiomyopathy, he has EF of 25%, hypertension, history of atrial fibrillation, has a pacemaker defibrillator, aortic valve replacement, previous stenting, history of depression, anxiety, pulmonary hypertension. SOCIAL HISTORY: Nonsmoker, [place] [address] CONSULTATION Name: JOSEPHINE ARIAS Room: [address] IN [facility]#: [id number] Admission: 06/13/19 Attend Phys: Wenceslao Membreno MD Discharge: Date of : 42 Report #: [id number] FAMILY HISTORY: Noncontributory. REVIEW OF SYSTEMS: Not reliably obtained. PHYSICAL EXAMINATION: GENERAL: Moderate to marked distress, can be redirected only briefly and appears somewhat chronically ill, undernourished. VITAL SIGNS: Temperature 98.1, T-max overnight 100.9, pulse 79, respirations 20, blood pressure 100/58. SKIN: Warm, dry. HEENT: Normocephalic. Extraocular muscles are intact. NECK: Supple. He does have nasal cannula oxygen in place. HEART: Irregularly irregular. LUNGS: Few scattered basilar crackles, some coarse rhonchi as well. ABDOMEN: Mildly distended, soft. There are no apparent peritoneal signs. EXTREMITIES: Right lower extremity, fluid around the knee. There is some moderate degree of inflammation. There may be some excess bursal fluid as well. GENITOURINARY AND RECTAL: Deferred. LABORATORY DATA: Chest x-ray, question of a small pleural effusion, unchanged cardiomegaly. Recent CBC: White count 6.1, H and H 9.0 and 27.9, platelets of 333. Sed rate of 71. ABGs: pH 7.452, pCO2 of 30.9, pO2 of 148.4 on 2 liters. Lactic acid is 0.7. Electrolytes: Sodium 142, potassium 3.4, chloride 106, bicarbonate is 24, anion gap of 12, BUN and creatinine 35 and 1.5, glucose of 89. LFTs unremarkable. Albumin 2.9, total protein 6.6. Estimated GFR of 45. Knee fluid analysis, carlitos, slightly hazy. White count of 4432, red count of 6385, cell count, 98% polys, 2% lymphs. CRP of 102.7. Influenza antigen was negative. ASSESSMENT AND PLAN: Nosocomial fevers, encephalopathy is certainly extensive consideration in terms of multiple possible etiologies. Certainly, the knee may well be playing a part, not entirely clear why he would have a septic arthritis and may well be more related to perhaps pseudogout. We will attempt to send for crystals. Certainly, risk for another related infectious complications. Blood cultures are pending as is urinalysis. Chest x-ray was not really remarkable. He was started on broad spectrum empiric antimicrobial therapy. I think this is not unreasonable given the duration he has been in the hospital, the risk of nosocomial infectious complications. No evidence of biliary tract dysfunction at this point. We will consider imaging of the knee. He has not had ___ either and it would be a consideration if he does not seem to improve based on the empiric antimicrobials. <ELECTRONICALLY SIGNED> By: Garth Nina MD 07/01/19 0741 1632 [id number] Nina MD /bruno
[2019-07-01 08:00] VITALS: BP 122/67
[2019-07-01 11:18] VITALS: BP 101/66
[2019-07-01 12:51] LABS: ABSOLUTE EOSINOPHILS 0.1 thou/uL (0.0-0.7); ABSOLUTE LYMPHOCYTES 1.5 thou/uL (0.8-5.3); ABSOLUTE MONOCYTES 1.1 thou/uL (0.0-1.2); ABSOLUTE NEUTROPHILS 4.2 thou/uL (1.6-8.1); BASOPHILS 0.5 %; EOSINOPHILS 2.1 %; HEMATOCRIT 28.6 % (42.0-52.0); HEMOGLOBIN 9.2 gm/dL (14.0-18.0); LYMPHOCYTES 22.1 %; MCH 25.9 pg (26.0-34.0); MCHC 32.2 g/dL (28.0-37.0); MCV 80.5 fL (80.0-100.0); MONOCYTES 15.4 %; MPV 7.6 fl. (7.2-11.1); NUCLEATED RBCS 0 /100WBC; PLATELET COUNT* 345 thou/uL (150-400); POLYS 59.9 %; RBC 3.56 mil/uL (4.50-6.00); RDW-CV 18.1 % (10.5-14.5); WBC 6.9 thou/uL (4.0-11.0)
[2019-07-01 13:12] LABS: CALCIUM 9.7 mg/dL (8.5-10.1); CREATININE 1.6 mg/dL (0.6-1.3); POTASSIUM 3.4 mmol/L (3.5-5.1); TOTAL BILIRUBIN 0.6 mg/dL (<0.1-1.0)
[2019-07-01 15:56] VITALS: BP 104/61
[2019-07-02] VITALS: BP 115/64
[2019-07-02 04:00] VITALS: BP 118/74
[2019-07-02 05:32] LABS: URINE BILIRUBIN NEGATIVE (Negative); URINE BLOOD TRACE (Negative); URINE CLARITY CLEAR; URINE COLOR YELLOW; URINE GLUCOSE-RANDOM NEGATIVE (Negative); URINE KETONES NEGATIVE (Negative); URINE LEUKOCYTES NEGATIVE (Negative); URINE NITRITE NEGATIVE (Negative); URINE PROTEIN NEGATIVE (Negative); URINE UROBILINOGEN 0.2 E.U./dl (0.2-1.0)
[2019-07-02 08:30] VITALS: BP 131/79
[2019-07-02 12:08] VITALS: BP 108/63
[2019-07-02 16:23] VITALS: BP 101/57
[2019-07-02 20:00] VITALS: BP 98/59
[2019-07-03] VITALS: BP 113/68
[2019-07-03 04:00] VITALS: BP 120/59
[2019-07-03 05:05] LABS: ABSOLUTE EOSINOPHILS 0.1 thou/uL (0.0-0.7); ABSOLUTE LYMPHOCYTES 1.2 thou/uL (0.8-5.3); ABSOLUTE MONOCYTES 0.8 thou/uL (0.0-1.2); ABSOLUTE NEUTROPHILS 4.4 thou/uL (1.6-8.1); BASOPHILS 0.6 %; EOSINOPHILS 0.9 %; HEMATOCRIT 25.9 % (42.0-52.0); HEMOGLOBIN 8.4 gm/dL (14.0-18.0); MCH 25.9 pg (26.0-34.0); MCHC 32.4 g/dL (28.0-37.0); MCV 79.9 fL (80.0-100.0); MONOCYTES 12.6 %; MPV 8.7 fl. (7.2-11.1); NUCLEATED RBCS 0 /100WBC; PLATELET COUNT* 317 thou/uL (150-400); POLYS 67.9 %; RBC 3.24 mil/uL (4.50-6.00); RDW-CV 17.7 % (10.5-14.5); WBC 6.5 thou/uL (4.0-11.0)
[2019-07-03 05:17] LABS: CALCIUM 9.2 mg/dL (8.5-10.1); CREATININE 1.3 mg/dL (0.6-1.3)
[2019-07-03 08:00] VITALS: BP 94/65
[2019-07-03 12:00] VITALS: BP 102/44
[2019-07-03 16:00] VITALS: BP 103/63
[2019-07-03 20:00] VITALS: BP 111/64
[2019-07-04] VITALS: BP 110/60
[2019-07-04 04:00] VITALS: BP 121/60
[2019-07-04 08:00] VITALS: BP 125/68
[2019-07-04 12:00] VITALS: BP 93/54
[2019-07-04 12:26] LABS: ABSOLUTE EOSINOPHILS 0.1 thou/uL (0.0-0.7); ABSOLUTE LYMPHOCYTES 1.1 thou/uL (0.8-5.3); ABSOLUTE MONOCYTES 0.8 thou/uL (0.0-1.2); ABSOLUTE NEUTROPHILS 2.7 thou/uL (1.6-8.1); EOSINOPHILS 2.7 %; HEMATOCRIT 26.6 % (42.0-52.0); HEMOGLOBIN 8.5 gm/dL (14.0-18.0); LYMPHOCYTES 22.7 %; MCH 25.7 pg (26.0-34.0); MCV 80.2 fL (80.0-100.0); MONOCYTES 16.1 %; MPV 8.4 fl. (7.2-11.1); NUCLEATED RBCS 0 /100WBC; PLATELET COUNT* 313 thou/uL (150-400); POLYS 57.5 %; RBC 3.32 mil/uL (4.50-6.00); WBC 4.7 thou/uL (4.0-11.0)
[2019-07-04 12:34] LABS: ALBUMIN 2.9 g/dL (3.4-5.0); CALCIUM 9.3 mg/dL (8.5-10.1); CREATININE 1.3 mg/dL (0.6-1.3); TOTAL BILIRUBIN 0.4 mg/dL (<0.1-1.0); TOTAL PROTEIN 6.5 g/dL (6.4-8.2)
[2019-07-04 16:01] VITALS: BP 100/62
[2019-07-04 20:00] VITALS: BP 109/51
[2019-07-05] VITALS (8 sets, daily range): BP systolic 106–124; BP diastolic 55–70
[2019-07-05 04:58] LABS: ABSOLUTE BASOPHILS 0.1 thou/uL (0.0-0.2); ABSOLUTE EOSINOPHILS 0.1 thou/uL (0.0-0.7); ABSOLUTE LYMPHOCYTES 1.2 thou/uL (0.8-5.3); ABSOLUTE MONOCYTES 0.8 thou/uL (0.0-1.2); ABSOLUTE NEUTROPHILS 2.7 thou/uL (1.6-8.1); EOSINOPHILS 2.6 %; HEMATOCRIT 25.2 % (42.0-52.0); HEMOGLOBIN 8.3 gm/dL (14.0-18.0); LYMPHOCYTES 25.3 %; MCHC 32.9 g/dL (28.0-37.0); MCV 79.2 fL (80.0-100.0); MONOCYTES 16.5 %; MPV 8.5 fl. (7.2-11.1); NUCLEATED RBCS 0 /100WBC; PLATELET COUNT* 299 thou/uL (150-400); POLYS 54.6 %; RBC 3.18 mil/uL (4.50-6.00); RDW-CV 17.9 % (10.5-14.5); WBC 4.9 thou/uL (4.0-11.0)
[2019-07-05 05:04] LABS: CALCIUM 9.2 mg/dL (8.5-10.1); CREATININE 1.2 mg/dL (0.6-1.3); POTASSIUM 3.2 mmol/L (3.5-5.1)
[2019-07-06] VITALS: BP 125/81
[2019-07-06 04:00] VITALS: BP 121/53
[2019-07-06 08:00] VITALS: BP 127/77
[2019-07-06 16:08] VITALS: BP 104/59
[2019-07-06 20:00] VITALS: BP 129/74
[2019-07-07] VITALS: BP 148/93
[2019-07-07 09:40] VITALS: BP 148/93
[2019-07-07] MEDS ORDERED: FOLIC ACID1 MG PO (10:35)
[2019-07-07] MEDS ORDERED: DIGESTIVE PROB250 MG PO (10:36)
== END 2019-07-07 11:45 | disposition home health service (06) | DRG 280 ==
LOC: M.ERS 22:07 → M.2W 23:19 → M.TBA-ER 23:19 → M.2W 06-14 16:07
PROVIDERS: Family Medicine; Internal Medicine; Internal Medicine Cardiovascular Disease; Personal Emergency Response Attendant; ADMIT Internal Medicine
PROC: 4B02XSZ Measurement of Cardiac Pacemaker, External Approach (ICD-10-PCS; principal; 2019-06-17)
PROC: 5A09357 Assistance with Respiratory Ventilation, Less than 24 Consecutive Hours, Continuous Positive Airway Pressure (ICD-10-PCS; 2019-07-03)
DX: I21.A1 Myocardial infarction type 2 (principal); I50.43 Acute on chronic combined systolic (congestive) and diastolic (congestive) heart failure; G92 Toxic encephalopathy; N17.0 Acute kidney failure with tubular necrosis; I13.0 Hypertensive heart and chronic kidney disease with heart failure and stage 1 through stage 4 chronic kidney disease, or unspecified chronic kidney disease; D68.69 Other thrombophilia; N18.4 Chronic kidney disease, stage 4 (severe); I48.20 Chronic atrial fibrillation, unspecified; I25.10 Atherosclerotic heart disease of native coronary artery without angina pectoris; Z96.652 Presence of left artificial knee joint; F32.9 Major depressive disorder, single episode, unspecified; F41.9 Anxiety disorder, unspecified; I27.20 Pulmonary hypertension, unspecified; I25.5 Ischemic cardiomyopathy; I48.0 Paroxysmal atrial fibrillation; R33.9 Retention of urine, unspecified; K72.90 Hepatic failure, unspecified without coma; G47.33 Obstructive sleep apnea (adult) (pediatric); E87.6 Hypokalemia; I95.9 Hypotension, unspecified; F03.90 Unspecified dementia, unspecified severity, without behavioral disturbance, psychotic disturbance, mood disturbance, and anxiety; I65.29 Occlusion and stenosis of unspecified carotid artery; Z95.0 Presence of cardiac pacemaker; Z95.1 Presence of aortocoronary bypass graft; Z95.2 Presence of prosthetic heart valve; Z88.2 Allergy status to sulfonamides; Z88.8 Allergy status to other drugs, medicaments and biological substances; Z87.891 Personal history of nicotine dependence; Z79.01 Long term (current) use of anticoagulants; Z95.5 Presence of coronary angioplasty implant and graft; Z82.49 Family history of ischemic heart disease and other diseases of the circulatory system; Z79.899 Other long term (current) drug therapy

== ENCOUNTER → 2019-07-11 | Outpatient (CLI) | payer OTHER ==
[~2019-07-11] MED LIST changes: +DIGESTIVE PROB250 MG PO; +FOLIC ACID1 MG PO; +IRON240 M1 PO; +XANAX XR1 MG PO; +XANAX XR2 MG PO
[2019-07-11 16:08] LABS: CALCIUM 9.1 mg/dL (8.5-10.1); CREATININE 1.5 mg/dL (0.6-1.3); POTASSIUM 4.3 mmol/L (3.5-5.1)
== END ==
LOC: M.LAB 15:03
PROVIDERS: Nurse Practitioner
DX: I12.9 Hypertensive chronic kidney disease with stage 1 through stage 4 chronic kidney disease, or unspecified chronic kidney disease (principal); N18.3 Chronic kidney disease, stage 3 (moderate)

== ENCOUNTER 2019-12-12 14:51 | Inpatient (IN) | payer MEDICARE, SELFPAY ==
[~2019-12-12] VITALS: Ht 180.3 cm; Wt 87.9 kg
--- NOTE | ~2019-12-12 | CON ---
[facility] [address] [place] [address] CONSULTATION Name: ARIASJOSEPHINE Jeannine Room: [address] IN M.R.#: [id number] Admission: 12/12/19 Attend Phys: Malgorzata Fong Discharge: Date of : 42 Report #: [id number] THIS REPORT FOR: //name// cc: Erendira Bruno MD, Pamela MD ~ THIS REPORT FOR: //name// CC: Erendira Bonner DATE OF SERVICE: 12/15/2019 HISTORY OF PRESENT ILLNESS: This is a 79-year-old male patient who is unable to provide any reliable history. The patient is completely confused. He has been seen by multiple neurologists when he has been admitted multiple times to this hospital and I reviewed those records. They say, he sees Dr. Forman as an outpatient but I do not think he has seen her for some time. He comes here for confusion and then becomes better. The family thinks he is not that confused at home, but I am not sure about the reliability of the history from the family either. I talked to the daughter as well as the patient's . I think this patient has significant confusion even in the baseline, the way they described the symptom to me, although he does become intermittently more confused. He also has severe carotid stenosis for which he was supposed to follow up with a vascular surgeon. I do not know whether he ever followed up or not. Presently, he is extremely confused and does not make any sense. REVIEW OF SYSTEMS: A 14-point review of system is carried out. He has been on digoxin. He has chronic systolic heart failure, coronary artery disease, chronic atrial fibrillation. He has a pacemaker. He has an aortic valve replacement. He is not able to provide any of those history. He is on anticoagulation on a chronic basis. This was his relevant 14-point review of system. PAST MEDICAL HISTORY: Positive for similar confusions for which he has been admitted multiple times. FAMILY HISTORY: Unremarkable. SOCIAL HISTORY: He lives with his . PHYSICAL EXAMINATION: The patient's examination is pretty difficult. I spent a lot of time to carry out examination in him, but all attempts were unsuccessful. He does not know what month it is. He talks irrelevantly. He does not follow any commands. He does not appear to have any meningeal sign. It looks like he can move both sides. Heart is irregular. There is no respiratory difficulty. Blood pressure is 120/84, temperature is 98.2, pulse [place] 80. [place] [address] CONSULTATION Name: JOSEPHINE ARIAS Room: [address]#: [id number] Admission: 12/12/19 Attend Phys: Malgorzata Fong Discharge: Date of : 42 Report #: [id number] LABORATORY DATA: His white count is normal at 6.9. IMPRESSION: I suspect this patient has underlying dementia with superimposed encephalopathy. Family may be overestimating his cognition because records indicate that he has been admitted multiple times with confusion. I will get an EEG done. We will see if his pacemaker is compatible with MRI, but even then you have to set up the MRI and that is difficult. He has a carotid stenosis. He was supposed to see the Vascular surgeon, but with his mentation even the management of that is difficult. They know Dr. Forman and she is taking over the service tomorrow and I will talk to her in the morning and we will also see if he improves with improvement in his is any systemic condition. The main thing is that his bilirubin is high, so he may be getting some hepatic encephalopathy. I will get an EEG to see if he has any triphasic waves. About 50 minutes of time was spent taking care of this patient today and majority was spent trying to talk to the patient and subsequently talking to the and then the patient's daughter, and reviewing the patient's prior records. Thank you very much. Dr. Forman will follow up this patient with you from tomorrow. By: 25 [id number] Boland MD /bruno
[2019-12-12 14:54] VITALS: BP 125/62
[2019-12-12] MEDS ORDERED: LANOXIN 0.25M0.25 M1 PO (14:58)
[2019-12-12] MEDS ORDERED: ENTRESTO 24 MG1 EACH PO ×2 (14:59→15:06)
[2019-12-12 15:46] LABS: ABSOLUTE EOSINOPHILS 0.1 thou/uL (0.0-0.7); ABSOLUTE LYMPHOCYTES 1.4 thou/uL (0.8-5.3); ABSOLUTE MONOCYTES 1.3 thou/uL (0.0-1.2); BASOPHILS 0.5 %; EOSINOPHILS 1.9 %; HEMATOCRIT 37.9 % (42.0-52.0); HEMOGLOBIN 12.7 gm/dL (14.0-18.0); LYMPHOCYTES 19.7 %; MCH 30.4 pg (26.0-34.0); MCHC 33.4 g/dL (28.0-37.0); MONOCYTES 19.4 %; MPV 7.9 fl. (7.2-11.1); NUCLEATED RBCS 0 /100WBC; PLATELET COUNT* 165 thou/uL (150-400); POLYS 58.5 %; RBC 4.17 mil/uL (4.50-6.00); RDW-CV 18.6 % (10.5-14.5); WBC 6.9 thou/uL (4.0-11.0)
[2019-12-12 15:56] LABS: INR 1.5; PROTIME 15.2 Seconds (9.20-11.50)
[2019-12-12 16:08] LABS: CALCIUM 9.3 mg/dL (8.5-10.1); CREATININE 1.6 mg/dL (0.6-1.3); POTASSIUM 4.8 mmol/L (3.5-5.1)
[2019-12-12 16:12] LABS: ALBUMIN 3.7 g/dL (3.4-5.0); TOTAL BILIRUBIN 2.1 mg/dL (<0.1-1.0); TOTAL PROTEIN 6.6 g/dL (6.4-8.2)
--- NOTE | 2019-12-12 17:01 | EKG ---
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: [place] : 1940 Requested By: Monica Hardin Order Number: [id number] MD: Tony Christensen Measurements Intervals [place] Rate: 73 P: 0 TX: 80 QRS: 211 QRSD: 139 T: 115 QT: 401 QTc: 442 Interpretive Statements Ventricular-paced rhythm No further analysis attempted due to paced rhythm Baseline wander in lead(s) V2 Compared to ECG 06/13/2019 22:21:55 PVCs have disappeared Electronically Signed On 12-12-2019 17:00:15 CDT by Tony Christensen [email or web address] <ELECTRONICALLY SIGNED> By: Tony Christensen MD, [facility] 12/12/19 1700 1512 151 Tony Christensen MD, [facility] /EPI
[2019-12-12 19:45] VITALS: BP 130/64
[2019-12-12 20:00] VITALS: BP 153/77
[2019-12-13 00:15] VITALS: BP 128/64
[2019-12-13 04:00] VITALS: BP 149/75
--- NOTE | 2019-12-13 04:38 | NUR ---
RECIEVED PT FROM ER ARROUND 2000H, ON RA AND TOLERATED THE WHOLE NIGHT. UPON ARRIVAL IN TELE, PT WAS DISORIENTED X4 AND SLEEPING ALL THE TIME BUT EASILY WOKE UP. NO AGITATION NOTED. PT IS MORE AWAKE BUT STILL DISORIENT X3. ORIENT PT ALL THE TIME. DTR CALLED AND UPDATE GIVEN, ACCORDING TO HER IF THEY WILL START ANTIBIOTIC INFORM GI DOCTOR BECAUSE PT HAD A HX OF CDIFF AND FECAL TRANSPLANT. PT HAVE SOME BRUISING ON THE LEFT LEG, HE FELL ACCORDING TO HIM BUT DON'T REMEMBER WHEN. NO FACIAL DROPPING AND NO HEMIPARESIS NOTED. CONTINUE MONITORING AND TOWARD GOALS.
--- NOTE | 2019-12-13 06:36 | NUR ---
CALL OUT FIRST, PT STARTLED EASILY AND MIGHT SWING ON YOU. STILL CONFUSED.
--- NOTE | 2019-12-13 09:01 | NUR ---
ASSUMED PT. CARE AND RECEIVED REPORT AT 0730. PT A/OX4, VSS, MONITOR ON TRACING MECHANICAL RELIABILITY ENGINEER. PT. DENIES CURRENT CHEST PAIN, REPORTS "stomach" PAIN FROM BEING NPO. FULL ASSESSMENT COMPLETED, REFER TO CHARTING. CALL LIGHT IN REACH, FALL PRECAUTIONS IN PLACE. WILL CONTINUE WITH PLAN OF CARE.
--- NOTE | 2019-12-13 09:40 | NUR ---
ASSUMED PT. CARE AND RECEIVED REPORT AT 0730. PT AWAKES EASILY, UNORIENTATED X4. VSS. MONITOR ON TRACING RN REFERRAL. PT. C/O PAIN IN BACK/LEGS. PT. SWINGING AT STAFF DURING CARE, HOLDING CORDS TO EQUIPTMENT, REFUSING TO LET GO. PT. REFUSING ALL MEDICATIONS, STATES THEY ARE PROBABLY POISON. PT. ALSO REFUSING FOOD/DRINK FOR SAME REASON. PT. SET UP FOR BREAKFAST AND STAFF RETREATED IN HOPES HE WILL EAT. FALL PRECAUTIONS IN PLACE, PT. CLOSE TO RN STATION FOR CLOSE MONITORING.
[2019-12-13 09:43] VITALS: BP 155/77
[2019-12-13 12:29] VITALS: BP 136/58
[2019-12-13 12:30] LABS: CREATININE 1.2 mg/dL (0.6-1.3); POTASSIUM 4.3 mmol/L (3.5-5.1)
[2019-12-13 13:32] LABS: AMMONIA < 10 umol/L (11-32)
--- NOTE | 2019-12-13 15:57 | NUR ---
CM spoke with Pt's via phone. Pt resides at home with . Normally independent, Pt uses a walker for mobility. Per , Pt was doing good at home, until he started taking the Digoxin. Pt has a hospital bed, but only sleeps in it PRN. Hx of [facility]. Pt current with [facility]. Supportive dtr that is involved in POC. Goal is home at wi, open to HH if needed.
[2019-12-13 16:49] VITALS: BP 130/55
--- NOTE | 2019-12-13 18:44 | NUR ---
PT. REMAINED CONFUSED WITH AGITATION THROUGH MOST OF THE MORNING. BECAME FEBRILE AROUND 1500, TREATED WITH TYLENOL. ONCE FEVER BROKE PT. BECAME MORE PLEASANTLY CONFUSED, COOPERATIVE WITH STAFF. ARELIS PLACED FOR RETENTION. PT. IS REMOVING CLOTHING/BLANKETS AND HAS REMOVED 1 IV.
[2019-12-13 20:00] VITALS: BP 134/88
[2019-12-14] VITALS: BP 100/61
[2019-12-14 04:30] VITALS: BP 129/60
[2019-12-14 07:53] VITALS: BP 99/44
--- NOTE | 2019-12-14 08:43 | NUR ---
ASSUMED CARE OF PT THIS AM AROUND 07- DIRECTOR CHECK IN PLACE ORDERED, TRACING A-PACED- UPON ASSESSMENT PT NOTED TO BE SLEEPING/SOMMULENT, AWAKES TO STERNAL RUB-INFANTE IN PLACE D/D CLEAR MANI URINE, INCONT OF BOWEL- Q2 HOUR TURNS IN PLACE INDICATED- DIMINISHED LUNG SOUNDS NOTED, RESP EVEN AND UN-LABORED- VSS, O2 SAT 95% ON RA- ABD SOFT/ROUND/NON-TENDER, BS X4 QUADS- LAST BM REPORTED IN PRIOR SHIFT- IV NOTED TO RIGHT AC INTACT, IVF INFUSSING PRESCRIBED- ASSIST REQUIRED WITH MEALS, FAIR PO INTAKE NOTED THIS AM WITH BREAKFAST- CALL LIGHT AND PERSONAL BELONGINGS WITH IN REACH- BED ALARM IN PLACE AND WORKING FOR PT SAFETY- HOURLY ROUNDS IN PLACE R/T SAFETY/NEEDS- ALL NEEDS MET AT THIS TIME-RAYMOND
[2019-12-14 11:50] LABS: ANION GAP 10 mmol/L (7-16); BUN 21 mg/dL (7-18); CALCIUM 8.8 mg/dL (8.5-10.1); CHLORIDE 104 mmol/L (98-107); CHOLESTEROL 121 mg/dL (<200); CO2 23 mmol/L (21-32); CREATININE 1.2 mg/dL (0.6-1.3); GLUCOSE 79 mg/dL (70-99); HDL CHOLESTEROL 42 mg/dL (>40); LDL CHOLESTEROL 67 mg/dL (<100); POTASSIUM 4.3 mmol/L (3.5-5.1); SERUM ASSESSMENT Clear; SODIUM 137 mmol/L (136-145); TC:HDL 2.9 Ratio (Not establshd); TRIGLYCERIDE 61 mg/dL (<150); VLDL 12 mg/dL (<40)
[2019-12-14 12:24] VITALS: BP 121/65
[2019-12-14 12:37] LABS: URINE BILIRUBIN NEGATIVE (Negative); URINE BLOOD 3+ (Negative); URINE CLARITY CLEAR; URINE COLOR YELLOW; URINE GLUCOSE-RANDOM NEGATIVE (Negative); URINE KETONES NEGATIVE (Negative); URINE LEUKOCYTES-REFLEX TRACE (Negative); URINE NITRITE-REFLEX NEGATIVE (Negative); URINE PROTEIN NEGATIVE (Negative); URINE SPECIFIC GRAVITY 1.015 (1.005-1.030); URINE UROBILINOGEN 0.2 E.U./dl (0.2-1.0)
[2019-12-14 12:55] LABS: BACTERIA-REFLEX 1-9 Few /HPF (None Seen); CRYSTALS None Seen /LPF (None Seen); HYALINE CASTS 4-10 Moderate /LPF (None Seen); MUCUS 0-3 Light strn/LPF (None Seen); SQUAMOUS 0-3 Few /LPF (0-3); URINE WBC-REFLEX 0-5 Rare /HPF (0-5)
--- NOTE | 2019-12-14 15:00 | NUR ---
Per dr, anticipate dc in a few days to home. Following.
[2019-12-14 16:43] VITALS: BP 136/78
[2019-12-14 20:00] VITALS: BP 127/73
[2019-12-15] VITALS: BP 160/89
--- NOTE | 2019-12-15 02:59 | NUR ---
PT SLEEPY AROUSES EASILY. TALKING SOME WITH STAFF WHEN TURNED. TURNING Q 2 HRS. INFANTE DRAINING YELLOW. TAKING PILLS WITH APPLE SAUCE. TELEMETRY SHOWS AV PACED. ON RA. WILL CONTINUE TO MONITOR.
[2019-12-15 04:00] VITALS: BP 138/77
[2019-12-15 04:38] LABS: CALCIUM 8.6 mg/dL (8.5-10.1); CREATININE 1.2 mg/dL (0.6-1.3); POTASSIUM 3.8 mmol/L (3.5-5.1)
[2019-12-15 08:06] VITALS: BP 145/81
--- NOTE | 2019-12-15 09:49 | NUR ---
ASSUMED CARE OF PT THIS AM AROUND 0715- SUPERVISOR SLASHING DEPARTMENT IN PLACE ORDERED, TRACING A-PACED- UPON ASSESSMENT PT NOTED TO BE BE RESTING IN BED, WATCHING TV- PT A&O X1, CONFUSSION NOTED; MUCH MORE ALERT THIS AM- INCONT OF URINE, INFANTE IN PLACE D/D DARK YELLOW URINE- BED REST IN PLACE R/T SAFETY/NEEDS- Q [address] INDICATED- LCTA, RESP EVEN AND UN-LABORED- VSS, O2 SAT 94% ON RA- ABD SOFT/ROUND/NON-TENDER, BS X4 QUADS- BM REPORTED ON PRIOR SHIFT- IV NOTED TO RIGHT AC INTACT AND SL- SET UP ASSIST WITH MEALS, FAIR PO INTAKE NOTED THIS AM WITH BREAKFAST-NEURO HERE TO ASSESS THIS AM WITH EEG ORDERED- PT DENIES ANY C/O PAIN/DISCOMFORT- CALL LIGHT AND PERSONAL BELONGINGS WITH IN REACH-ALL NEEDS MET AT THIS TIME-WCTM
--- NOTE | 2019-12-15 11:24 | CON ---
[address] [address] CONSULTATION Name: JOSEPHINE ARIAS Jeannine Room: [address] IN .R.#: [id number] Admission: 12/12/19 Attend Phys: Malgorzata Fong Discharge: Date of : 42 Report #: [id number] THIS REPORT FOR: //name// cc: Erendira Bruno MD, Pamela MD ~ THIS REPORT FOR: //name// CC: ERENDIRA Bonner CARDIOLOGY CONSULTATION INDICATION: Mental status changes. HISTORY OF PRESENT ILLNESS: The patient is a 79-year-old gentleman who is well known to myself. He has a history of ischemic cardiomyopathy with an ejection fraction of approximately 20-25%. He had a remote history of coronary artery bypass grafting with aortic valve replacement, mitral valve repair and Kwan-Maze procedure for atrial fibrillation. 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 The patient has been on appropriate heart failure regimen. The patient was noted to be lethargic by family to the point where he was unarousable and brought to the hospital. The patient is felt to have metabolic encephalopathy. He does not appear to be in overt heart failure. He is not complaining of any chest pain. His troponins are chronically elevated. At present, he is a poor historian. I cannot get a specific complaint from him. He does not appear uncomfortable. The patient was admitted due to acute mental status changes. PAST MEDICAL HISTORY: 1. Coronary artery disease. 2. Ischemic cardiomyopathy. 3. Bioprosthetic aortic valve replacement. 4. Mitral valve repair. 5. Kwan-Maze procedure. 6. Coronary artery bypass grafting. 7. Paroxysmal/persistent atrial fibrillation. 8. 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 9. Chronic systolic heart failure. 10. Chronic renal insufficiency. 11. Chronic anticoagulation. 12. Hypertension. ALLERGIES: AMIODARONE, SPIRONOLACTONE, STATINS, [place] [address] CONSULTATION Name: JOSEPHINE ARIAS Room: [address]#: [id number] Admission: 12/12/19 Attend Phys: Malgorzata Fong Discharge: Date of : 41 Report #: [id number] HOME MEDICATIONS: Allopurinol 300 mg daily, Xanax 1 mg daily, carvedilol 3.125 mg b.i.d., vitamin D3 400 units daily, vitamin B12 500 mcg daily, digoxin 0.25 mg daily, iron sulfate 240 mg daily, folic acid 1 mg daily, furosemide 40 mg daily, hydrocodone/acetaminophen 7.5/325 every 6 hours p.r.n., Lidoderm patch topically as directed, magnesium oxide 250 mg daily, Nitrostat sublingual p.r.n., potassium chloride 20 mEq daily, prednisone 10 mg daily, Xarelto 15 mg at dinnertime, Florastor 250 mg daily, Entresto 24/26 mg 1 tablet b.i.d., Flomax 0.4 mg at bedtime, B1 100 mg daily, Effexor 37.5 mg b.i.d. SOCIAL HISTORY: The patient is . He lives with his . He does not drink alcohol. He does not smoke. He has a supportive family. FAMILY HISTORY: Noncontributory. PHYSICAL EXAMINATION: VITAL SIGNS: Blood pressure 130/55, pulse is 92 and regular. GENERAL: This is an elderly gentleman who is in no distress. HEENT: Head is normocephalic, atraumatic. Extraocular muscles intact. Mucous membranes are dry. NECK: Shows no jugular venous distention. CHEST: Reveals basilar breath sounds to be diminished. I do not appreciate wheezes or obvious rales. CARDIOVASCULAR: Reveals a distant S1 and S2 without gallop or murmur. ABDOMEN: Reveals normal bowel sounds. The abdomen is soft, nontender. EXTREMITIES: Shows no significant edema. SKIN: Dry. RADIOLOGICAL DATA: Chest x-ray shows cardiomegaly without evidence of infiltrate or edema. LABORATORY DATA: Reviewed. Sodium 140, potassium 4.3, chloride 104, bicarb 27, BUN 17, creatinine 1.2, serum glucose 91. NT-proBNP pending. Troponin 0.54, 0.51 and 0.51. White blood cell count 6.9, hemoglobin 12.7, platelet count 165,000. IMPRESSION AND RECOMMENDATIONS: 1. Chronic systolic heart failure, appears to be fairly well compensated at this point in time. I do not appreciate gross volume overload. Would continue the patient's home diuretic regimen. 2. Coronary artery disease, presently stable. He is not complaining of any symptoms to suggest angina. His troponins are chronically elevated. I do not believe this represents an acute coronary syndrome. Continue current medications. 3. Chronic atrial fibrillation. The patient is ventricularly paced. He does have a biventricular pacer in situ. This is functioning normally by remote [address] [address] CONSULTATION Name: JOSEPHINE ARIAS Room: [address] IN [facility]#: [id number] Admission: 12/12/19 Attend Phys: Malgorzata Fong Discharge: Date of : 42 Report #: [id number] interrogation. 4. Status post aortic valve replacement, will repeat echocardiogram to reevaluate. 5. Mental status changes. Etiology is not clear. Continue supportive care. 6. Chronic renal insufficiency, appears stable at this time. 7. Chronic anticoagulation. The patient is tolerating low dose Xarelto without bleeding problems. <ELECTRONICALLY SIGNED> By: Wenceslao Membreno MD, FACC 12/15/19 1124 [id number] Membreno MD, FACC /nt
[2019-12-15 12:06] VITALS: BP 132/78
[2019-12-15 16:49] VITALS: BP 114/59
[2019-12-15 20:00] VITALS: BP 154/54
[2019-12-16 00:08] VITALS: BP 131/93
--- NOTE | 2019-12-16 04:32 | NUR ---
ASSUMED PATIENT CARE AT 1900. PATIENT ALERT TO SELF. NO COMPLAINTS OF PAIN OR DISCOMFORT NOTED. SITTER REQUIRED THROUGH THE NIGHT FOR PATIENT SAFETY. HAIRSPRING II INSPECTOR AND HOURLY ROUNDING COMPLETED CHARTED
[2019-12-16 05:00] LABS: CALCIUM 9.3 mg/dL (8.5-10.1); CREATININE 1.3 mg/dL (0.6-1.3); POTASSIUM 3.4 mmol/L (3.5-5.1)
--- NOTE | 2019-12-16 05:44 | NUR ---
PATIENTS DAUGHTER CALLED BOTH LAST NIGHT AND THIS AM. STATED THAT RN HAD NO IDEA HOW HER FATHER WAS AT HOME WHEN TOLD BY RN THAT PATIENT WAS HALLUCINATING NEEDING A SITTER. DAUGHTER WAS VERY INSISTENT THAT HER FATHER HAD NEVER BEEN LIKE THIS AND HE WAS GOING TO "COME OUT OF IT". DAUGHTER STATES THAT SHE IS A NURSE ALSO AND HER FATHER HAS NO SIGNS OR SYMPTOMS OF DEMENTIA AND THAT NURSING STAFF HAS NO IDEA WHAT THEY ARE TALKING ABOUT.
[2019-12-16 07:43] LABS: MAGNESIUM 1.7 mg/dL (1.8-2.4)
[2019-12-16 08:00] VITALS: BP 138/78
--- NOTE | 2019-12-16 11:38 | NUR ---
Per , Pt having ongoing AMS. Anticipate dc in a few days to home with [facility] HH and [facility] palliative care. [facility] p:[phone] f:[phone] [facility] palliative Care p:[phone] f:[phone]
[2019-12-16 16:00] VITALS: BP 146/59
[2019-12-16 20:00] VITALS: BP 143/90
[2019-12-16 23:51] VITALS: BP 137/59
--- NOTE | 2019-12-17 07:43 | NUR ---
ASSUMED PATIENT CARE AT 1900. ASSESSMENT COMPLETED CHARTED. PATIENT IS MED-SURG ON THE MONITOR. PATIENT SLEEPY DURING SHIFT AND WOULD AWAKE PERIODICALLY BUT REFUSED TO TAKE MEDICATIONS. HOURLY ROUNDING IN PLACE FOR PATIENT SAFETY. FALL PRECAUTIONS IN PLACE FOR PATIENT SAFETY. CLWR.
[2019-12-17 08:00] VITALS: BP 123/86
[2019-12-17 17:11] VITALS: BP 132/80
--- NOTE | 2019-12-17 18:50 | NUR ---
ASSUMED PT CARE AT 0730. ASSESSMENT COMPLETED CHARTED. ABLE TO MAKE NEEDS KNOWN. PT SLEEPING IN BED TILL ABOUT 11AM. UP TO CHAIR FOR SUPPER WITH 1 AND WALKER. NO C/O PAIN. ABLE TO COMMUNICATE WITH STAFF BETTER BUT STILL CONFUSED AND SEEING THINGS. AWAKE AND ALERT NOW. PT CALLED TODAY AND TALKED TO HIM. PT STILL IN CHAIR AT THIS TIME. WILL CONTINUE TO MONITOR.
[2019-12-17 20:00] VITALS: BP 146/90
[2019-12-18 04:26] LABS: HEMATOCRIT 36.1 % (42.0-52.0); MCH 30.6 pg (26.0-34.0); MCHC 33.4 g/dL (28.0-37.0); MCV 91.6 fL (80.0-100.0); MPV 8.3 fl. (7.2-11.1); RBC 3.94 mil/uL (4.50-6.00); RDW-CV 17.6 % (10.5-14.5); WBC 8.6 thou/uL (4.0-11.0)
[2019-12-18 04:49] LABS: ALBUMIN 3.2 g/dL (3.4-5.0); CALCIUM 8.3 mg/dL (8.5-10.1); CREATININE 1.3 mg/dL (0.6-1.3); POTASSIUM 3.4 mmol/L (3.5-5.1); TOTAL BILIRUBIN 1.2 mg/dL (<0.1-1.0)
--- NOTE | 2019-12-18 05:19 | NUR ---
ASSUMED PATIENT CARE AT 1900. ASSESSMENT COMPLETED CHARTED. PATIENT IS MED-SURG ON THE MONITOR. PATIENT REMAINS CONFUSED. HOURLY ROUNDING IN PLACE FOR PATIENT SAFETY. FALL PRECAUTIONS IN PLACE FOR PATIENT SAFETY. CLWR.
[2019-12-18 08:00] VITALS: BP 140/84
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
--- NOTE | 2019-12-18 09:40 | NUR ---
PT WAS ABLE TO TAKE ALL OF PO MEDICATIONS FOR ME. REQUIRED MULTIPLE TIMES OF REDIRECTION. PT'S DAUGHTER CALLED AND DID STATE THAT THE PT DOES HAVE TO BE ABLE TO CLIMB 3 STEPS TO COME INTO HOUSE. IS WORRIED THAT HE WILL NOT BE STRONG ENOUGH TO DO SO AND CAN NOT DO IT FOR HIM.
--- NOTE | 2019-12-18 10:33 | NUR ---
PT FOUND TRYING TO EXIT CHAIR. PT ASSISTED BACK TO BED WITH MULTIPLE REDIRECTIONS. EXIT ALARM IN PLACE CLWR
[2019-12-18 16:00] VITALS: BP 119/60
[2019-12-18 20:00] VITALS: BP 139/74
[2019-12-19] VITALS: BP 120/70
[2019-12-19 04:00] VITALS: BP 141/83
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
[2019-12-19 08:31] VITALS: BP 112/78
--- NOTE | 2019-12-19 11:15 | NUR ---
PER ORDER TO TRANSFER PT.TO [facility]PT[facility], SPOKE WITH TRINIDAD/BOBBIN DISKER [phone]. GAVE HER CLINICAL INFORMATION OVER THE PHONE AND FAXED ADDITIONAL INFORMATION TO HER [phone]. INCLUDED DPOA,CURRENT MED LIST, FACE SHEET 2 DAYS OF PROGRESS NOTES AND 2 DAYS OF NURSES NOTES. HAD TO LEAVE MESSAGE AT 'S OFFICE [phone] TO FAX CURRENT VACCIANTION RECORD TO CM. TRINIDAD SAID SHE WOULD REVIEW WITH AND CALL CM BACK.
[2019-12-19 13:02] VITALS: BP 112/78
--- NOTE | 2019-12-19 15:30 | NUR ---
PT.ACCEPTED TO [facility]. ACCEPTING IS . FAXED DISCHARGE ORDERS TO [facility] NOTIFIED AND DAUGHTER,EVELYNE OF PT.GOING TO [facility]. GAVE THEM PHONE NUMBER TO UNIT. [facility]ANCE ARRANGED [facility] FOR 1515 TRANSPORT. CHART COPIED TO GO [facility] PT. MARJORIE VELAZQUEZ WILL CALL REPORT. TRANSFER FORM AND [facility].FORM FAXED TO [facility]/[place].
== END 2019-12-19 15:20 | DRG 70 ==
LOC: M.ERS 14:51 → M.TBA-ER 17:55 → M.2W 17:55
PROVIDERS: Internal Medicine; Personal Emergency Response Attendant; ADMIT Internal Medicine
DX: G93.41 Metabolic encephalopathy (principal); N17.0 Acute kidney failure with tubular necrosis; I50.22 Chronic systolic (congestive) heart failure; I13.0 Hypertensive heart and chronic kidney disease with heart failure and stage 1 through stage 4 chronic kidney disease, or unspecified chronic kidney disease; I48.20 Chronic atrial fibrillation, unspecified; N18.4 Chronic kidney disease, stage 4 (severe); F03.90 Unspecified dementia, unspecified severity, without behavioral disturbance, psychotic disturbance, mood disturbance, and anxiety; I25.10 Atherosclerotic heart disease of native coronary artery without angina pectoris; Z96.652 Presence of left artificial knee joint; E83.42 Hypomagnesemia; F32.9 Major depressive disorder, single episode, unspecified; I48.0 Paroxysmal atrial fibrillation; I65.29 Occlusion and stenosis of unspecified carotid artery; F41.9 Anxiety disorder, unspecified; T46.0X5A Adverse effect of cardiac-stimulant glycosides and drugs of similar action, initial encounter; R63.0 Anorexia; Z95.2 Presence of prosthetic heart valve; Z95.810 Presence of automatic (implantable) cardiac defibrillator; Z95.1 Presence of aortocoronary bypass graft; Z88.2 Allergy status to sulfonamides; Z88.8 Allergy status to other drugs, medicaments and biological substances; Z87.891 Personal history of nicotine dependence; Y92.89 Other specified places as the place of occurrence of the external cause; Z68.27 Body mass index [BMI] 27.0-27.9, adult; Z79.01 Long term (current) use of anticoagulants; Z79.899 Other long term (current) drug therapy